=== PATIENT | male | born 1970 | race Caucasian/White ===

== ENCOUNTER 2021-01-22 14:34 | Emergency (ER) | payer OTHER, SELFPAY ==
--- NOTE | ~2021-01-22 | CT_ITS ---
EXAMINATION: CT lumbar spine wo con DATE: 01/22/2021 16:19 HELMINTHOLOGY TEACHER INDICATION: Low back pain after fall TECHNIQUE: Computed tomography (CT) of the lumbar spine was performed without intravenous contrast. Billy he dose-length product was 1379.23 mGy-cm. Automated exposure control and iterative reconstruction te hannahpabloque were employed. COMPARISON: Lumbar spine dated 01/22/2021 FINDINGS: There is mild disc narrowing at L4-5 and L5-S1. No acute fracture or traumatic malalignment . Normal lumbar lordosis. There is a left-sided pseudoarticulation and L5-S1. No significant paraspin al soft tissue abnormality. The following disc levels are specifically discussed: T11-T12: The disc does not extend beyond the endplate margin. There is no facet joint osteoarthritis. There is no neural foraminal stenosis. There is no central canal stenosis. T12-L1: The disc does not extend beyond the endplate margin. There is no facet joint osteoarthritis. There is no neural foraminal stenosis. There is no central canal stenosis. L1-L2: The disc does not extend beyond the endplate margin. There is no facet joint osteoarthritis. T here is no neural foraminal stenosis. There is no central canal stenosis. L2-L3: The disc does not extend beyond the endplate margin. There is no facet joint osteoarthritis. T here is no neural foraminal stenosis. There is no central canal stenosis. L3-L4: There is mild annular disc bulging without focal herniation. There is mild facet joint osteoar thritis. There is no neural foraminal stenosis. There is no central canal stenosis. L4-L5: There is mild-moderate annular disc bulging. There is no facet joint osteoarthritis. There is no neural foraminal stenosis. There is mild central canal stenosis. L5-S1: There is mild annular disc bulging There is mild facet joint osteoarthritis. There is no neura l foraminal stenosis. There is no central canal stenosis. IMPRESSION: 1. Mild lumbar spondylosis with mild central canal stenosis at L4-5. Reviewed, dictated and finalized at location A. INTHOLOGY TEACHER
--- NOTE | ~2021-01-22 | XR_ITS ---
XR lumbar spine 2-3V 01/22/2021 14:57 Indication: Status post fall. Low back pain. Procedure: 3 views lumbar spine Comparison: 01/13/2010 Findings: Mild disc narrowing at L4-5 and L5-S1. No fracture, subluxation or dislocation. Pedicles in tact. There is left-sided pseudoarticulation at L5-S1. No evidence for spondylolisthesis. Sacral fora men are symmetric. Impression: 1: No acute abnormality of the lumbar spine. Reviewed, dictated and finalized at location A. LITIES DIRECTOR Impression: 1: No acute abnormality of the lumbar spine.
--- NOTE | ~2021-01-22 | XR_ITS ---
XR elbow LT min 3V 01/22/2021 14:57 INDICATION: Left elbow pain PROCEDURE: 4 views left elbow COMPARISON: No prior studies for comparison. FINDINGS: Fracture, dislocation or subluxation is not identified. No significant joint effusion. Mild osteoarthritis. The soft tissues appear within normal limits. No foreign bodies are identified. IMPRESSION: 1: NO ACUTE BONE OR JOINT ABNORMALITY IDENTIFIED. Reviewed, dictated and finalized at location A. ITION ASSOCIATE
[2021-01-22 14:35] VITALS: BP 131/82; PULSE 88; RESP 17; TEMP 35.8; O2SAT 98
--- NOTE | 2021-01-22 15:46 | ED.FALL ---
HPI - Fall General Chief Complaint: Fall Stated Complaint: back pain, fall Time Seen by Provider: 01/22/21 15:07 Source: patient Mode of arrival: ambulatory Limitations: no limitations History of Present Illness HPI Narrative: This is a 50-year-old male that presents to the emergency department for low back pain after a ground-level fall. Reports he slipped getting out of the shower and fell backwards. Also reports hitting his left elbow. He does think he hit his head. He denies any loss of consciousness. Denies vision changes, vomiting, numbness, or weakness. Related Data Allergies Allergy/AdvReac Type Severity Reaction Status Date / Time No Known Allergies Allergy Unverified 07/16/16 15:32 Review of Systems Review of Systems: CONSTITUTIONAL: Denies fever EYES: Denies visual changes GASTROINTESTINAL: Denies vomiting MUSCULOSKELETAL: Reports back pain, joint pain, and myalgia. NEUROLOGIC: Denies numbness, or weakness. All systems reviewed & are unremarkable except as noted in HPI and below PMFSH Past Medical History Medical History (Updated 01/22/21 @ 16:39 by Erinn Salinas PA-C) No active medical problems Social History Social History (Updated 01/22/21 @ 15:49 by Erinn Salinas PA-C) Substance use: current Substance use type: marijuana Exam Narrative: GENERAL: Well-appearing, well-nourished, and in no acute distress. HEAD: Normocephalic, atraumatic. EYES: PERRLA and EOMI. ENT: Nares clear, no rhinorrhea or epistaxis. Mucous membranes moist. Oropharynx without tonsillar hypertrophy exudate or other lesions. Bilateral TMs pearly che non-bulging NECK: Supple. No adenopathy or masses. CHEST: Clear to auscultation. No respiratory distress. No wheezes rales or rhonchi HEART: Regular rate and rhythm. No murmur heard. Normal peripheral pulses. BACK: No midline thoracic spine tenderness. Tender to palpation of midline lumbar spine EXTREMITIES: Normal range of motion. No edema or obvious deformity. Strength equal in bilateral upper and lower extremities (5/5) SKIN: Warm, dry, no rash. NEURO: No focal deficits. Alert and oriented x3. Cranial nerves II through XII grossly intact. Normal gait PSYCH: Normal mood and affect Course Vital Signs Vital signs: Vital Signs Temperature 96.5 F L 01/22/21 14:35 Pulse Rate 88 01/22/21 14:35 Respiratory Rate 17 01/22/21 14:35 Blood Pressure 131/82 01/22/21 14:35 Pulse Oximetry 98 01/22/21 14:35 Temperature 96.5 F L 01/22/21 14:35 Pulse Rate 88 01/22/21 14:35 Respiratory Rate 17 01/22/21 14:35 Blood Pressure 131/82 01/22/21 14:35 Pulse Oximetry 98 01/22/21 14:35 MDM - Fall MDM Narrative Medical decision making narrative: Patient presents to the emergency department for low back pain and left elbow injury after a fall today. Patient does report hitting his head. Denies loss of consciousness. He is neurologically intact. Left elbow x-rays without acute osseous abnormalities. CT scan of the lumbar spine is also without acute osseous abnormalities. Patient was updated on case findings. He was instructed to rest, ice and take [id number] pain medication as needed. He is to follow-up with his primary care doctor. He was given warnings to return to the ER Imaging Data Radiologist's impression: ITS Impressions Elbow X-Ray 01/22/21 14:57 IMPRESSION: 1: NO ACUTE BONE OR JOINT ABNORMALITY IDENTIFIED. Lumbar Spine X-Ray 01/22/21 14:58 Impression: 1: No acute abnormality of the lumbar spine. Lumbar Spine CT 01/22/21 16:18 IMPRESSION: 1. Mild lumbar spondylosis with mild central canal stenosis at L4-5. Critical Care Time Critical Care Time Critical Care Time: No Discharge Plan Discharge Clinical Impression: Contusion of lower back Qualifiers: Encounter type: initial encounter Qualified Code(s): S30.0XXA - Contusion of lower back and pelvis, initial encounter Contusion of elbow
[2021-01-22 17:10] VITALS: BP 142/84; PULSE 84; RESP 17; O2SAT 98
== END 2021-01-22 17:12 | disposition home or self-care (01) ==
PROVIDERS: Emergency Provider Emergency Medicine
DX: S30.0XXA Contusion of lower back and pelvis, initial encounter (principal); S50.02XA Contusion of left elbow, initial encounter; M47.816 Spondylosis without myelopathy or radiculopathy, lumbar region; W01.0XXA Fall on same level from slipping, tripping and stumbling without subsequent striking against object, initial encounter
CPT/HCPCS: 72100; 72131; 73080; 99284; A4565

== ENCOUNTER 2021-01-25 14:56 | Outpatient (CLI) | payer OTHER, SELFPAY ==
--- NOTE | ~2021-01-25 | XR_ITS ---
EXAMINATION: XR chest 2V 01/25/2021 15:36 INDICATION: Joint pain. Tobacco use. PROCEDURE: 2 view chest COMPARISON: 07/16/2016 FINDINGS: The lungs are clear. The cardiomediastinal silhouette is within normal limits. There are no pleural effusions. There is no pneumothorax suspected. IMPRESSION: 1: NO ACUTE CARDIOPULMONARY DISEASE. Reviewed, dictated and finalized at location B. ANTY MANAGER
--- NOTE | ~2021-01-25 | XR_ITS ---
EXAMINATION: XR shoulder RT min 2V DATE: 01/25/2021 15:36 INDICATION: Right shoulder joint pain. TECHNIQUE: 4 views of right shoulder were obtained. COMPARISON: None. FINDINGS: Bone alignment is normal. No fracture. Glenohumeral joint is normal. There is severe acromi oclavicular joint osteoarthritis. IMPRESSION: 1. Severe acromioclavicular joint osteoarthritis. Reviewed, dictated and finalized at location A. ET RESEARCH COORDINATOR
--- NOTE | ~2021-01-25 | XR_ITS ---
XR shoulder LT min 2V 01/25/2021 15:37 Indication: Left shoulder pain Procedure: 4 views left shoulder Comparison: No prior studies for comparison. Findings: No fracture, subluxation or dislocation. There is anatomic alignment. No significant soft t issue abnormality. No foreign bodies. Impression: 1: No significant bone or joint abnormality. Reviewed, dictated and finalized at location B. FF CLERK Impression: 1: No significant bone or joint abnormality.
== END 2021-01-25 14:57 | disposition home or self-care (01) ==
LOC: ANHIMG 15:00
PROVIDERS: PCP Emergency Medicine; Visit Provider Emergency Medicine
DX: M19.011 Primary osteoarthritis, right shoulder (principal)
CPT/HCPCS: 71046; 73030

== ENCOUNTER 2021-02-05 23:25 | Emergency (ER) | payer OTHER, SELFPAY ==
--- NOTE | ~2021-02-05 | CT_ITS ---
EXAMINATION: CT abdomen pelvis w con DATE: 02/06/2021 01:46 INDICATION: Gluteal abscess and pain. TECHNIQUE: Computed tomography (CT) of the abdomen and pelvis was performed with 100 mL Omnipaque 350 intravenous contrast. Automated exposure control and iterative reconstruction technique were employe d. The dose-length product was 1531.49 mGy-cm. COMPARISON: CT abdomen and pelvis 01/31/2010 FINDINGS: There is a 2 mm nodule in right lung lower lobe, likely benign. No pleural effusion. The he art size is normal. No pericardial effusion. There is diffuse hepatic steatosis. There are gallstones in the gallbladder, which is normal in size. The spleen, pancreas, and right adrenal gland are merly l. Again seen is a 12 mm mass in left adrenal gland, likely an adenoma. There are cysts in the kidney s measuring up to 14 mm on the right. There are no dilated loops of bowel. The appendix is not visual ized. There is a 2.1 x 1.1 cm subcutaneous abscess in the left side of the intergluteal cleft. There are no pathologically enlarged lymph nodes. There is no free intraperitoneal fluid. There is mild tho racolumbar spondylosis. IMPRESSION: 1. 2.1 x 1.1 cm subcutaneous abscess in the left side of the intergluteal cleft. Reviewed, dictated and finalized at location A. H MOLDER IMPRESSION: 1. 2.1 x 1.1 cm subcutaneous abscess in the left side of the intergluteal cleft .
[2021-02-05 23:29] VITALS: BP 176/86; PULSE 115; RESP 20; TEMP 36.3; O2SAT 97
[2021-02-06] VITALS (14 sets, daily range): BP systolic 101–118; BP diastolic 62–87; PULSE 86–103; RESP 17–26; O2SAT 95
[2021-02-06] MEDS: SODIUM CHLORIDE 0.9% IV 1,000 ML 999 ML IV CONT (00:48)
[2021-02-06 00:54] LABS: Basophils Absolute Auto 0.1 K/mm3 (0.0-0.1); Basophils Percent Auto 0.5 % (0.2-1.2); Eosinophils Absolute Auto 0.1 K/mm3 (0-0.3); Hematocrit 47.9 % (42.0-52.0); Hemoglobin 17.1 g/dL (14.0-18.0); Immature Granulocyte Absolute 0.07 K/mm3 (0.00-0.031); Immature Granulocyte Percent A 0.6 % (0-0.5); Lymphocytes Absolute Auto 1.73 K/mm3 (0.9-3.2); Lymphocytes Percent Auto 14.6 % (18.3-44.2); Mean Corpuscular HGB Conc 35.7 g/dl (32-36); Mean Corpuscular Hemoglobin 32.7 pg (26-34); Mean Corpuscular Volume 91.6 fl (80-100); Mean Platelet Volume 11.2 fl (7.4-10.4); Monocytes Absolute Auto 1.1 K/mm3 (0.1-0.6); Monocytes Percent Auto 9.6 % (2.6-8.5); Neutrophils Absolute Auto 8.7 K/mm3 (1.3-6.7); Neutrophils Percent Auto 73.7 % (45.5-73.1); Platelet Count Result 194 k/mm3 (150-375); Red Blood Count 5.23 M/mm3 (4.6-6.20); Red Cell Distribution Width 12.8 % (11.5-14.5); White Blood Count 11.8 K/mm3 (4.5-10.0)
--- NOTE | 2021-02-06 00:54 | PC.NURSE ---
Patient declines dilaudid at this time. Patient states pain is only 2-3. States he will let this nurse know if pain gets worse.
[2021-02-06 01:06] LABS: Alanine Aminotransferase 40 U/L (4-50); Albumin Level 4.4 g/dL (3.5-5.1); Alkaline Phosphatase 120 U/L (38-126); Anion Gap 8 mmol/L (8-16); Aspartate Amino Transferase 33 U/L (17-59); Bilirubin,Total 0.7 mg/dL (0.2-1.3); Blood Urea Nitrogen 15 mg/dL (9-20); Calcium 9.1 mg/dL (8.4-10.2); Carbon Dioxide 24 mmol/L (22-30); Chloride 98 mmol/L (98-107); Estimated CRCL calculation 163 ml/min; Estimated Glomerular Filt Rate > 60; Glucose 291 mg/dL (65-110); Potassium 3.6 mmol/L (3.4-5.0); Sodium 130 mmol/L (137-145)
--- NOTE | 2021-02-06 01:18 | ED.GENADULT ---
HPI - General Adult General Chief complaint: Skin/Abscess/Foreign Body Stated complaint: boil on buttocks Time Seen by Provider: 02/06/21 00:16 History of Present Illness HPI narrative: Patient is a 50-year-old gentleman who presents the emergency department with chief complaint of abscess in the left gluteal region. Patient reports he is a diabetic and is supposed to start oral medications in the next several days. The patient states that he has noticed there is swelling and tenderness in the left gluteal region. The patient denies fever denies chills denies purulent drainage. Related Data Allergies Allergy/AdvReac Type Severity Reaction Status Date / Time No Known Allergies Allergy Unverified 07/16/16 15:32 Review of Systems Review of Systems: A 10 system review of systems was completed on the patient and is negative except for what is stated in the HPI. Nursing and ancillary documentation was reviewed. PENDING SALE TO [facility] Past Medical History Medical History No active medical problems Social History Social History Substance use: current Substance use type: marijuana Exam Narrative: GENERAL: Well-appearing, well-nourished, and in no acute distress. HEAD: Normocephalic, atraumatic. EYES: PERRLA and EOMI. ENT: Nares clear, no rhinorrhea or epistaxis. Mucous membranes moist. NECK: Supple. CHEST: Clear to auscultation. No respiratory distress. HEART: Regular rate and rhythm. No murmur heard. Normal peripheral pulses. ABDOMEN: Soft, nontender, nondistended, normal active bowel sounds. EXTREMITIES: Normal range of motion. No edema. : There is tenderness to palpation in the left gluteal fold SKIN: Warm, dry, no rash. NEURO: No focal deficits. Alert and oriented x3. PSYCH: Normal mood and affect. Course Vital Signs Vital signs: Vital Signs Temperature 36.3 C L 02/05/21 23:29 Pulse Rate 115 H 02/05/21 23:29 Respiratory Rate 20 02/05/21 23:29 Blood Pressure 176/86 H 02/05/21 23:29 Pulse Oximetry 97 02/05/21 23:29 Temperature 36.3 C L 02/05/21 23:29 Pulse Rate 93 12/13/21 01:49 Respiratory Rate 18 02/06/21 01:30 Blood Pressure 106/64 02/06/21 02:00 Pulse Oximetry 97 02/05/21 23:29 Procedures Abscess I/D thomas-rectal: Date of Incision: 02/06/21 Time of Incision: 02:37 Side (if applicable): right Local Anesthetic: lidocaine 1% Amount of anesthesia used (mL): 5 Technique: incised with #11 blade Amount of fluid expressed (mL): 5 Packing used?: iodoform I&D Results: Pus Medical Decision Making Vital Signs Vital Signs: Vital Signs Temperature 36.3 C L 02/05/21 23:29 Pulse Rate 115 H 02/05/21 23:29 Respiratory Rate 20 02/05/21 23:29 Blood Pressure 176/86 H 02/05/21 23:29 Pulse Oximetry 97 02/05/21 23:29 Temperature 36.3 C L 02/05/21 23:29 Pulse Rate 93 02/06/21 01:49 Respiratory Rate 18 02/06/21 01:30 Blood Pressure 106/64 02/06/21 02:00 Pulse Oximetry 97 02/05/21 23:29 Lab Data Result diagrams: 02/06/21 00:47 02/06/21 00:47 Labs: Lab Results 02/06/21 02/06/21 02/06/21 Range/Units 00:47 00:47 00:47 WBC 11.8 H (4.5-10.0) K/mm3 RBC 5.23 (4.6-6.20) M/mm3 Hgb 17.1 (14.0-18.0) g/dL Hct 47.9 (42.0-52.0) % MCV 91.6 (80-100) fl MCH 32.7 (26-34) pg MCHC 35.7 (32-36) g/dl RDW 12.8 (11.5-14.5) % Plt Count 194 (150-375) k/mm3 MPV 11.2 H (7.4-10.4) fl Immature Gran % (Auto) 0.6 H (0-0.5) % Neut % (Auto) 73.7 H (45.5-73.1) % Lymph % (Auto) 14.6 L (18.3-44.2) % [place] % (Auto) 9.6 H (2.6-8.5) % Eos % (Auto) 1.0 (0-4.4) % Baso % (Auto) 0.5 (0.2-1.2) % Lymph # (Auto) 1.73 (0.9-3.2) K/mm3 [place] # (Auto) 1.1 H (0.1-0.6) K/mm3 Eos # (Auto) 0.1 (0-0.3)
--- NOTE | 2021-02-06 01:32 | PC.NURSE ---
Patient taken to CT via stretcher.
--- NOTE | 2021-02-06 02:11 | PC.NURSE ---
[facility] - DILAUDID 1MG PRIOR TO IND
[2021-02-06] MEDS: HYDROmorphone HCL INJ (*CRX) 1 MG/ML SYR IV PUSH (02:13)
[2021-02-06 02:26] LABS: Add Urine Microscopic? YES; Appearance Urine Clear (Clear); Bilirubin Urine Negative (Negative); Blood Urine Negative (Negative); Color Urine Yellow (Yellow); Glucose Urine UA 3+ mg/dL (Negative); Ketones Urine 1+ mg/dL (Negative); Leukocyte Esterase Ur Negative LEU/UL (Negative); Mucus Urine Rare /lpf; Nitrate Urine Negative (Negative); Protein Urine Negative (Negative); RBC Urine 0-2 /hpf (0-2); Urobilinogen Urine Negative mg/dL (<2.0); WBC Urine 0-3 /hpf
[2021-02-06 02:31] LABS: Specific Grav Ur 1.048 (1.001-1.035)
[2021-02-06] MEDS: CEPHALEXIN 500 MG CAPSULE PO (02:48)
[2021-02-06] MEDS: HYDROcodone/acetaminophen (*CRX) 5-325 MG TABLET 1 TAB PO (02:48)
== END 2021-02-06 02:57 | disposition home or self-care (01) ==
PROVIDERS: Emergency Provider Emergency Medicine; PCP Emergency Medicine
DX: L02.31 Cutaneous abscess of buttock (principal)
CPT/HCPCS: 10061; 16020; 36415; 46040; 74177; 80053; 81001; 83605; 85025; 96361; 96374; 99284; A9270; J1170; J7030; Q9967

== ENCOUNTER → 2021-02-08 02:53 | Outpatient (CLI) | payer OTHER, SELFPAY ==
[2021-02-08 18:29] LABS: SARS-CoV-2 RNA PCR Negative
== END ==
PROVIDERS: PCP Emergency Medicine; Visit Provider Emergency Medicine
DX: Z20.822 Contact with and (suspected) exposure to COVID-19 (principal)
CPT/HCPCS: C9803; U0003; U0005

== ENCOUNTER 2021-05-19 12:42 | Outpatient (CLI) | payer OTHER, SELFPAY ==
--- NOTE | ~2021-05-19 | US_ITS ---
EXAMINATION: US thyroid EXAM DATE: 05/19/2021 13:15 INDICATION: Nontoxic goiter. TECHNIQUE: Multiple grayscale and Doppler images of the thyroid were obtained (by a technologist who performed the scan) and subsequently reviewed. Individual nodules and recommendations may be reporte d in accordance with TI-RADS system as designated by the 2017 ACR White Paper TI-RADS committee. The re is no prior study for comparison. FINDINGS: Right thyroid lobe measures 4.3 x 1.5 x 1.5 cm, the left measuring 4.8 x 1.6 x 1.9 cm. There is diffu sely heterogeneous thyroid echogenicity. The measurements are mildly enlarged. No definite focal nodu le identified within this heterogeneous parenchyma. IMPRESSION: 1. Mild thyromegaly. Reviewed, dictated and finalized at location G. IMPRESSION: 1. Mild thyromegaly.
== END 2021-05-19 12:43 | disposition home or self-care (01) ==
LOC: ANHIMG 12:48
PROVIDERS: PCP Emergency Medicine; Visit Provider Internal Medicine Endocrinology, Diabetes & Metabolism
DX: E04.9 Nontoxic goiter, unspecified (principal)
CPT/HCPCS: 76536

== ENCOUNTER 2021-07-11 09:23 | Outpatient (CLI) | payer OTHER, SELFPAY ==
--- NOTE | ~2021-07-11 | US_ITS ---
EXAMINATION: US soft tissue abdomen DATE: 07/11/2021 10:02 INDICATION: Diastases recti TECHNIQUE: Multiple grayscale and Doppler ultrasound images of the anterior abdominal wall were obtai janice. COMPARISON: CT dated 02/06/2021 FINDINGS: Again seen is diastases recti with at least 7 cm separation of the medial margin of the left and righ t rectus abdominis muscles. No ventral hernia. No abnormal masses or fluid collections identified. IMPRESSION: 1. Diastases recti without hernia. Reviewed, dictated and finalized at location A.
== END 2021-07-11 09:24 | disposition home or self-care (01) ==
PROVIDERS: PCP Physician Assistant; Visit Provider Physician Assistant
DX: M62.08 Separation of muscle (nontraumatic), other site (principal)
CPT/HCPCS: 76705

== ENCOUNTER 2021-07-31 17:23 | Outpatient (CLI) | payer OTHER, SELFPAY ==
--- NOTE | ~2021-07-31 | XR_ITS ---
XR sternum min 2V 07/31/2021 17:55 Indication: Swelling at the base of the sternum for one month. No pain. Procedure: 3 views of the sternum Comparison: 01/25/2021 Findings: No fracture, subluxation or dislocation. No focal soft tissue abnormality. No foreign elder s. Impression: 1: No acute abnormality of the sternum identified. Reviewed, dictated and finalized at location B. Impression: 1: No acute abnormality of the sternum identified.
== END 2021-07-31 17:24 | disposition home or self-care (01) ==
PROVIDERS: PCP Physician Assistant; Visit Provider Physician Assistant
DX: R07.89 Other chest pain (principal)
CPT/HCPCS: 71120

== ENCOUNTER 2021-08-24 12:46 | Outpatient (CLI) | payer OTHER, SELFPAY ==
--- NOTE | ~2021-08-24 | MR_ITS ---
EXAMINATION: MR shoulder RT wo con DATE: 08/24/2021 13:32 INDICATION: Partial thickness right rotator cuff tear is chronic shoulder pain and popping TECHNIQUE: Magnetic resonance imaging (MRI) of the right shoulder was performed without intravenous c ontrast. Sequences included axial PD-weighted FS FSE, coronal oblique PD-weighted FS FSE, coronal obl ique T2-weighted FS FSE, sagittal PD-weighted FS FSE, and sagittal T1-weighted SE. COMPARISON: None. FINDINGS: Coracoacromial arch: The acromion undersurface is curved in morphology (type II). The coracoacromial ligament is normal. M oderate acromioclavicular osteoarthritis with moderate-sized inferiorly directed osteophytes in the l ateral head of the clavicle which is by a thin intervening fat plane from the underlying lima praspinatus muscle belly upon which it does exert some mild mass effect. Rotator cuff: Mild tendinopathy at the conjoined portion of the supraspinatus and infraspinatus tendons without tea r. The teres minor tendon is normal. Mild subscapularis tendinopathy without tear. Normal rotator cuf f muscle bulk and signal. Biceps tendon, glenoid labrum and glenohumeral cartilage: Long head of the biceps tendon is normal. The posterior labrum appears small, partially replaced at i ts base by small marginal osteophytes along the 8:00-10:00 position of the rim of the glenoid. No lizzie dent labral tear. Mild diffuse thinning of the glenohumeral cartilage but with smooth chondral surfac e. Fluid: Physiologic amount of fluid in the glenohumeral joint and biceps tendon sheath. No loose osteochondr al bodies. No abnormal fluid signal in the subacromial/subdeltoid bursa to suggest bursitis. Bones: Normal marrow signal with no edema, fracture or abnormal marrow replacing process. IMPRESSION: 1. Moderate right acromioclavicular osteoarthritis with moderate-sized inferiorly directed osteophyte s. 2. Mild tendinopathy without tear of the conjoined supraspinatus and infraspinatus tendons. 3. Mild glenohumeral osteoarthritis. Reviewed, dictated and finalized at location A. IMPRESSION: 1. Moderate right acromioclavicular osteoarthritis with moderate-sized inferior ly directed osteophytes. 2. Mild tendinopathy without tear of the conjoined supraspinatus and infraspina tus tendons. 3. Mild glenohumeral osteoarthritis.
== END 2021-08-24 12:47 | disposition home or self-care (01) ==
PROVIDERS: PCP Physician Assistant; Visit Provider Orthopaedic Surgery
DX: M75.101 Unspecified rotator cuff tear or rupture of right shoulder, not specified as traumatic (principal); M19.011 Primary osteoarthritis, right shoulder
CPT/HCPCS: 73221

== ENCOUNTER 2022-10-02 16:25 | Emergency (ER) | payer OTHER, SELFPAY ==
--- NOTE | ~2022-10-02 | XR_ITS ---
EXAM: XR knee RT min 4V DATE: 10/02/2022 16:49 HISTORY: pain MEDIALLY AFTER TWISTING KNEE YESTERDAY . COMPARISON: None available. FINDINGS: Normal mineralization. No fracture or dislocation. No lytic or blastic lesion. Mild tricom partmental right knee osteoarthritis. No erosion or periosteal change. Soft tissues within normal yañez its. IMPRESSION: No acute osseous finding in the right knee. Reviewed, dictated and finalized at location K.
[2022-10-02 16:33] VITALS: BP 116/63; PULSE 69; RESP 16; TEMP 36.7; O2SAT 97
--- NOTE | 2022-10-02 18:26 | ED.LOWEXIN ---
HPI - Extremity Injury (Lower) General Chief Complaint: Extremity Injury, Lower <Aimee Holland PA-C - Last Filed: 10/03/22 02:38> Stated Complaint: right knee sprain <FARHAN Tahyer Last Filed: 10/03/22 02:38> Time Seen by Provider: 10/02/22 17:28 <Aimee Holland PA-C - Last Filed: 10/03/22 02:38> History of Present Illness HPI Narrative: 52-year-old male reports for evaluation for right knee pain after he twisted it yesterday while walking his dog. Patient states he was walking his dog, and stubbed his foot on a pothole, causing him to twist his right knee, states he felt a pop. States he had no pain at that time and was able to ambulate without difficulty yesterday. States today he woke up and his head sharp pains in his right medial joint line, worse with ambulation. He is able to ambulate. He denies paresthesias to his lower extremity or other injury. He already has an orthopedic surgeon he follows with. <FARHAN Thayer Last Filed: 10/03/22 02:38> Related Data Allergies/Adverse Reactions: Allergies Allergy/AdvReac Type Severity Reaction Status Date / Time No Known Allergies Allergy Unverified 07/16/16 15:32 <Aimee Holland PA-C - Last Filed: 10/03/22 02:38> Review of Systems Review of Systems: CONSTITUTIONAL: Denies fever, chills EYES: Denies visual changes, redness, or discharge. ENT: Denies rhinorrhea, congestion, sore throat, or otalgia. CARDIOVASCULAR: Denies chest pain, palpitations, or edema. RESPIRATORY: Denies cough or dyspnea. GASTROINTESTINAL: Denies abdominal pain, nausea, vomiting, or diarrhea. GENITOURINARY: Denies dysuria or hematuria. SKIN: Denies rash or itching. MUSCULOSKELETAL: See HPI NEUROLOGIC: Denies headache, numbness, dizziness, or weakness. PSYCHIATRIC: Denies anxiety or depression. <FARHAN Thayer Last Filed: 10/03/22 02:38> [facility] Past Medical History Medical History: Medical History No active medical problems <Aimee oHlland PA-C - Last Filed: 10/03/22 02:38> Social History Social History: Social History Substance use: current Substance use type: marijuana <Aimee Holland PA-C - Last Filed: 10/03/22 02:38> Exam Narrative: GENERAL: Well-appearing, in no acute distress. Patient resting comfortably exam chair. He is pleasant and conversational HEAD: Normocephalic NECK: Supple. CHEST: No respiratory distress. Clear to auscultation, no adventitious breath sounds. HEART: Regular rate and rhythm. No murmur heard. Normal peripheral pulses. EXTREMITIES: Right knee with tenderness to the medial joint line. No effusions, warmth or erythema. No tenderness to remainder of knee. Negative anterior and posterior drawer. No laxity with varus or valgus stress. Full range of motion of knee. Sensation intact throughout. DP pulse 2+. Cap refill less than 2. SKIN: Warm, dry, no rash. NEURO: No focal deficits. Alert and oriented x3. PSYCH: Normal mood and affect. <Aimee Holland PA-C - Last Filed: 10/03/22 02:38> Course MANAGER IT TRAINING/PA Physician Supervision I did perform the medical decision making for this encounter. <Ericka Elias MD - Last Filed: 10/03/22 19:43> Vital Signs Vital signs: Vital Signs Temperature 98.1 F 10/02/22 16:33 Pulse Rate 69 10/02/22 16:33 Respiratory Rate 16 10/02/22 16:33 Blood Pressure 116/63 10/02/22 16:33 Pulse Oximetry 97 10/02/22 16:33 Oxygen Delivery Room Air 10/02/22 16:33 Temperature 98.1 F 10/02/22 16:33 Pulse Rate 72 10/02/22 18:41 Respiratory Rate 18 10/02/22 18:41 Blood Pressure 120/78 10/02/22 18:41 Pulse Oximetry 99 10/02/22 18:41 Oxygen Delivery Room Air 10/02/22 16:33 <Aimee Holland PA-C - Last Filed: 10/03/22 02:38> Vital Signs Temperature 98.1 F 08/0
[2022-10-02 18:41] VITALS: BP 120/78; PULSE 72; RESP 18; O2SAT 99
== END 2022-10-02 18:42 | disposition home or self-care (01) ==
PROVIDERS: Emergency Provider Physician Assistant
DX: S86.911A Strain of unspecified muscle(s) and tendon(s) at lower leg level, right leg, initial encounter (principal); X50.0XXA Overexertion from strenuous movement or load, initial encounter
CPT/HCPCS: 73564; 99283

== ENCOUNTER 2022-10-15 12:31 | Outpatient (CLI) | payer OTHER, SELFPAY ==
[2022-10-15 12:43] LABS: Hematocrit 38.9 % (42.0-52.0); Hemoglobin 13.5 g/dL (14.0-18.0); Mean Corpuscular HGB Conc 34.7 g/dl (32-36); Mean Corpuscular Hemoglobin 32.3 pg (26-34); Mean Corpuscular Volume 93.1 fl (80-100); Mean Platelet Volume 9.8 fl (7.4-10.4); Platelet Count Result 211 k/mm3 (150-375); Red Blood Count 4.18 M/mm3 (4.6-6.20); Red Cell Distribution Width 12.7 % (11.5-14.5); White Blood Count 7.5 K/mm3 (4.5-10.0)
== END 2022-10-15 12:32 | disposition home or self-care (01) ==
LOC: ANHLAB 12:34
PROVIDERS: Visit Provider Internal Medicine Hematology & Oncology
DX: D75.1 Secondary polycythemia (principal)
CPT/HCPCS: 36415; 85027

== ENCOUNTER 2023-01-15 10:40 | Outpatient (CLI) | payer OTHER, SELFPAY ==
[2023-01-15 11:04] LABS: Mean Corpuscular HGB Conc 35.6 g/dl (32-36); Mean Corpuscular Hemoglobin 32.7 pg (26-34); Mean Corpuscular Volume 91.8 fl (80-100); Mean Platelet Volume 10.2 fl (7.4-10.4); Platelet Count Result 252 k/mm3 (150-375); Red Cell Distribution Width 12.8 % (11.5-14.5); White Blood Count 9.8 K/mm3 (4.5-10.0)
[2023-01-15 17:21] LABS: Iron 81 ug/dL (49-181)
[2023-01-15 17:34] LABS: Percent Iron Saturation 24 % (20-50)
== END 2023-01-15 10:41 | disposition home or self-care (01) ==
PROVIDERS: Visit Provider Internal Medicine Hematology & Oncology
DX: D50.9 Iron deficiency anemia, unspecified (principal)
CPT/HCPCS: 36415; 82728; 83540; 83550; 85027

== ENCOUNTER 2023-04-09 10:08 | Emergency (ER) | payer OTHER, SELFPAY ==
--- NOTE | ~2023-04-09 | CT_ITS ---
EXAMINATION: CT lumbar spine wo con DATE: 04/09/2023 13:47 INDICATION: Back pain. TECHNIQUE: Computed tomography (CT) of the lumbar spine was performed without intravenous contrast. A utomated exposure control and iterative reconstruction technique were employed. The dose-length produ ct was 1195.75 mGy-cm. COMPARISON: CT lumbar spine 01/22/2021 FINDINGS: Bone alignment is normal. L5 is a transitional segment. There are Schmorl's nodes at multip le levels. There are bilateral L4 pars defects. There is a fracture of L4 spinous process. There is m ildly decreased disc height at L4-L5. The following disc levels are specifically discussed: L1-L2: The disc does not extend beyond the endplate margin. There is mild bilateral facet joint osteo arthritis. There is no neural foraminal stenosis. There is no central canal stenosis. L2-L3: The disc does not extend beyond the endplate margin. There is mild bilateral facet joint osteo arthritis. There is no neural foraminal stenosis. There is no central canal stenosis. L3-L4: The disc is bulging. There is mild bilateral facet joint osteoarthritis. There is mild bilater al neural foraminal stenosis. There is mild central canal stenosis. L4-L5: The disc is bulging. There is mild bilateral facet joint osteoarthritis. There is mild left ne ural foraminal stenosis. There is mild central canal stenosis. There are changes of posterior decompr ession including resection of the medial aspect of the right facet joint. L5-S1: The disc does not extend beyond the endplate margin. There is ankylosis of the facet joints wi th mild hypertrophy. There is mild left neural foraminal stenosis. There is no central canal stenosis . IMPRESSION: 1. Acute/subacute bilateral L4 pars defects and L4 spinous process fracture. 2. Mild lumbar spondylosis. Reviewed, dictated and finalized at location A. [facility]
[2023-04-09 11:22] VITALS: BP 123/81; PULSE 66; RESP 18; O2SAT 96
--- NOTE | 2023-04-09 13:32 | ED.BACK ---
HPI - Back Pain/Injury General Chief Complaint: Back Pain/Injury Stated Complaint: back pain Time Seen by Provider: 04/09/23 12:45 History of Present Illness HPI Narrative: Patient is a 52-year-old male who presents to the emergency department this afternoon complaining of lower back pain. Patient admits that he did have back surgery performed at [facility] along his lumbar spine in December of last year. Since then patient states that he has been doing well, however, throughout the last week has been noticing worsening lower back pain. Patient denies any recent falls or trauma but admits that a while ago while he was at the grocery store someone accidentally elbowed him in the back around the area where he had his lumbar surgery and he was concerned if that may have worsened anything in his back. He is currently denying any fevers or chills, denies any history of cancer or history of IV drug use and is currently denying any additional symptoms including chest pain, shortness of breath, nausea, vomiting, abdominal pain, dysuria, hematuria, constipation, diarrhea, melena, hematochezia, fevers or chills. Patient also denies any headaches, dizziness, lightheadedness, blurry visions, focal weakness, numbness and or tingling. There are no other modifying, alleviating, or precipitating factors at this time. Related Data Allergies Allergy/AdvReac Type Severity Reaction Status Date / Time No Known Allergies Allergy Verified 04/09/23 11:21 Review of Systems Review of Systems: All systems are reviewed and are negative unless stated otherwise in the HPI. [facility] Past Medical History Medical History No active medical problems Social History Social History Substance use: current Substance use type: marijuana Comments Denies any significant past medical history, patient had lumbar back surgery December of 2022, denies any significant family history, denies tobacco use, admits to daily marijuana use, denies any alcohol abuse or any additional illicit drug use. Exam Narrative: General: Alert, awake, afebrile, in no acute distress. HEENT: PERRL, no rhinorrhea, no post nasal drip, oropharynx clear. Neck: Trachea midline, no JVD, no lymphadenopathy. Cardiovascular: Regular rate and rhythm, no murmurs, rubs or gallops, no peripheral edema. Respiratory: Clear to auscultation bilaterally, no tachypnea, no wheezing, no rhonchi, no rubs, no respiratory distress. Abdomen: Soft, nontender, nondistended, no rebound, no guarding, no peritoneal signs. Musculoskeletal: No joint swelling or deformity, normal muscle tone. Back: Old well-healed scar over the lumbar spine, mild tenderness to palpation over the midline L-spine and left paraspinal lumbar region, no step-offs or deformities, no midline tenderness to palpation over the cervical and thoracic spine. Skin: No rashes or petechia, no signs of infection. Psychiatric: Alert and oriented, normal behavior and judgment for situation. Neurological: Alert and oriented to person, place, and time. Follows all commands. No focal deficits, speech is clear and fluent. Course Vital Signs Vital signs: Vital Signs Pulse Rate 66 04/09/23 11:22 Respiratory Rate 18 04/09/23 11:22 Blood Pressure 123/81 04/09/23 11:22 Pulse Oximetry 96 04/09/23 11:22 Pulse Rate 66 04/09/23 11:22 Respiratory Rate 18 04/09/23 11:22 Blood Pressure 123/81 04/09/23 11:22 Pulse Oximetry 96 04/09/23 11:22 MDM - Back Pain/Injury MDM Narrative Medical decision making narrative: The patient was evaluated by myself in the emergency department. History is obtained from patient who is an independent historian and physical exam was performed. External medical records were reviewed at this time. Patient was administered an oral [place] 5-325 mg for back pain. Imaging studies obtained includ
[2023-04-09] MEDS: HYDROcodone/acetaminophen (*CRX) 5-325 MG TABLET 1 TAB PO (13:46)
[2023-04-09 14:35] VITALS: BP 126/99; PULSE 66; RESP 18; TEMP 37; O2SAT 97
== END 2023-04-09 14:39 | disposition home or self-care (01) ==
PROVIDERS: Emergency Provider Emergency Medicine
DX: S32.049A Unspecified fracture of fourth lumbar vertebra, initial encounter for closed fracture (principal); M47.816 Spondylosis without myelopathy or radiculopathy, lumbar region; X58.XXXA Exposure to other specified factors, initial encounter
CPT/HCPCS: 72131; 99284; A9270

== ENCOUNTER 2023-04-25 09:34 | Outpatient (CLI) | payer OTHER, SELFPAY ==
[2023-04-25 09:54] LABS: Basophils Absolute Auto 0.1 K/mm3 (0.0-0.1); Basophils Percent Auto 0.6 % (0.2-1.2); Eosinophils Absolute Auto 0.3 K/mm3 (0-0.3); Eosinophils Percent Auto 3.3 % (0-4.4); Hematocrit 47.3 % (42.0-52.0); Hemoglobin 16.4 g/dL (14.0-18.0); Immature Granulocyte Absolute 0.03 K/mm3 (0.00-0.031); Immature Granulocyte Percent A 0.3 % (0-0.5); Lymphocytes Absolute Auto 1.52 K/mm3 (0.9-3.2); Lymphocytes Percent Auto 17.1 % (18.3-44.2); Mean Corpuscular HGB Conc 34.7 g/dl (32-36); Mean Corpuscular Hemoglobin 31.7 pg (26-34); Mean Corpuscular Volume 91.3 fl (80-100); Mean Platelet Volume 10.2 fl (7.4-10.4); Monocytes Absolute Auto 0.7 K/mm3 (0.1-0.6); Monocytes Percent Auto 7.9 % (2.6-8.5); Neutrophils Absolute Auto 6.3 K/mm3 (1.3-6.7); Neutrophils Percent Auto 70.8 % (45.5-73.1); Platelet Count Result 231 k/mm3 (150-375); Red Blood Count 5.18 M/mm3 (4.6-6.20); Red Cell Distribution Width 12.6 % (11.5-14.5); White Blood Count 8.9 K/mm3 (4.5-10.0)
[2023-04-25 11:56] LABS: Iron 52 ug/dL (49-181)
[2023-04-25 12:06] LABS: Percent Iron Saturation 14 % (20-50)
== END 2023-04-25 09:35 | disposition home or self-care (01) ==
LOC: ANHLAB 09:36
PROVIDERS: Visit Provider Internal Medicine Hematology & Oncology
DX: D50.9 Iron deficiency anemia, unspecified (principal)
CPT/HCPCS: 36415; 82728; 83540; 83550; 85025

== ENCOUNTER 2023-08-22 08:42 | Outpatient (CLI) | payer OTHER, SELFPAY ==
[2023-08-22 08:58] LABS: Basophils Absolute Auto 0.1 K/mm3 (0.0-0.1); Basophils Percent Auto 0.9 % (0.2-1.2); Eosinophils Absolute Auto 0.3 K/mm3 (0-0.3); Eosinophils Percent Auto 3.2 % (0-4.4); Hematocrit 47.3 % (42.0-52.0); Hemoglobin 16.9 g/dL (14.0-18.0); Immature Granulocyte Absolute 0.03 K/mm3 (0.00-0.031); Immature Granulocyte Percent A 0.4 % (0-0.5); Lymphocytes Absolute Auto 1.55 K/mm3 (0.9-3.2); Lymphocytes Percent Auto 19.4 % (18.3-44.2); Mean Corpuscular HGB Conc 35.7 g/dl (32-36); Mean Corpuscular Hemoglobin 31.8 pg (26-34); Mean Corpuscular Volume 89.1 fl (80-100); Mean Platelet Volume 10.5 fl (7.4-10.4); Monocytes Absolute Auto 0.7 K/mm3 (0.1-0.6); Neutrophils Absolute Auto 5.4 K/mm3 (1.3-6.7); Neutrophils Percent Auto 67.1 % (45.5-73.1); Platelet Count Result 222 k/mm3 (150-375); Red Blood Count 5.31 M/mm3 (4.6-6.20); Red Cell Distribution Width 14.1 % (11.5-14.5)
[2023-08-22 11:21] LABS: Iron 75 ug/dL (49-181)
[2023-08-22 11:26] LABS: Alanine Aminotransferase 27 U/L (6-50); Albumin Level 4.6 g/dL (3.5-5.1); Alkaline Phosphatase 83 U/L (38-126); Anion Gap 11 mmol/L (4-12); Aspartate Amino Transferase 24 U/L (17-59); Bilirubin,Total 0.5 mg/dL (0.2-1.3); Blood Urea Nitrogen 15 mg/dL (9-20); Calcium 9.2 mg/dL (8.4-10.2); Carbon Dioxide 21 mmol/L (22-30); Chloride 107 mmol/L (98-107); Estimated Glomerular Filt Rate > 60; Glucose 110 mg/dL (65-110); Potassium 3.9 mmol/L (3.4-5.0); Sodium 139 mmol/L (137-145)
[2023-08-22 11:31] LABS: Percent Iron Saturation 21 % (20-50)
== END 2023-08-22 08:43 | disposition home or self-care (01) ==
LOC: ANHLAB 08:43
PROVIDERS: Nurse Practitioner Family; Visit Provider Internal Medicine Hematology & Oncology
DX: E83.110 Hereditary hemochromatosis (principal)
CPT/HCPCS: 36415; 80053; 82728; 83540; 83550; 85025

== ENCOUNTER 2023-09-05 08:21 | Outpatient (CLI) | payer OTHER, SELFPAY ==
[2023-09-05 08:41] LABS: Basophils Percent Auto 0.6 % (0.2-1.2); Eosinophils Absolute Auto 0.3 K/mm3 (0-0.3); Eosinophils Percent Auto 3.9 % (0-4.4); Hemoglobin 16.3 g/dL (14.0-18.0); Immature Granulocyte Absolute 0.02 K/mm3 (0.00-0.031); Immature Granulocyte Percent A 0.3 % (0-0.5); Lymphocytes Absolute Auto 1.53 K/mm3 (0.9-3.2); Mean Corpuscular HGB Conc 35.4 g/dl (32-36); Mean Corpuscular Hemoglobin 32.1 pg (26-34); Mean Corpuscular Volume 90.6 fl (80-100); Mean Platelet Volume 10.3 fl (7.4-10.4); Monocytes Absolute Auto 0.8 K/mm3 (0.1-0.6); Monocytes Percent Auto 10.9 % (2.6-8.5); Neutrophils Absolute Auto 4.6 K/mm3 (1.3-6.7); Neutrophils Percent Auto 63.3 % (45.5-73.1); Platelet Count Result 209 k/mm3 (150-375); Red Blood Count 5.08 M/mm3 (4.6-6.20); Red Cell Distribution Width 13.5 % (11.5-14.5); White Blood Count 7.3 K/mm3 (4.5-10.0)
[2023-09-05 09:50] LABS: Immunoglobulin A 101 mg/dL (70-400); Immunoglobulin G 744 mg/dL (700-1600); Immunoglobulin M 48 mg/dL (40-230)
[2023-09-06 07:38] LABS: Protein, Total 6.5 g/dL (6.1-8.1)
[2023-09-06 14:34] LABS: Kappa\\Lambda Light Chains 2.65 (0.26-1.65); Lambda Light Chain 8.5 mg/L (5.7-26.3)
[2023-09-06 15:42] LABS: Albumin 3.9 g/dL (3.8-4.8); Alpha 1 Globulin 0.3 g/dL (0.2-0.3); Alpha 2 Globulin 0.7 g/dL (0.5-0.9); Beta 1 Globulin 0.5 g/dL (0.4-0.6); Gamma Globulin 0.8 g/dL (0.8-1.7)
== END 2023-09-05 08:22 | disposition home or self-care (01) ==
LOC: ANHLAB 08:23
PROVIDERS: Nurse Practitioner Family; Visit Provider Internal Medicine Hematology & Oncology
DX: D72.9 Disorder of white blood cells, unspecified (principal)
CPT/HCPCS: 36415; 82784; 83883; 84155; 84165; 85025

== ENCOUNTER 2024-03-17 09:20 | Outpatient (CLI) | payer OTHER, SELFPAY ==
[2024-03-17 09:44] LABS: Basophils Absolute Auto 0.1 K/mm3 (0.0-0.1); Basophils Percent Auto 0.8 % (0.2-1.2); Eosinophils Absolute Auto 0.3 K/mm3 (0-0.3); Eosinophils Percent Auto 4.1 % (0-4.4); Hematocrit 47.7 % (42.0-52.0); Hemoglobin 16.2 g/dL (14.0-18.0); Immature Granulocyte Absolute 0.01 K/mm3 (0.00-0.031); Immature Granulocyte Percent A 0.1 % (0-0.5); Immature Platelet Fraction Pct 6.6 % (0.9-11.2); Lymphocytes Absolute Auto 1.55 K/mm3 (0.9-3.2); Lymphocytes Percent Auto 21.8 % (18.3-44.2); Mean Corpuscular Hemoglobin 31.7 pg (26-34); Mean Corpuscular Volume 93.3 fl (80-100); Mean Platelet Volume 10.7 fl (7.4-10.4); Monocytes Absolute Auto 0.8 K/mm3 (0.1-0.6); Monocytes Percent Auto 10.8 % (2.6-8.5); Neutrophils Absolute Auto 4.4 K/mm3 (1.3-6.7); Neutrophils Percent Auto 62.4 % (45.5-73.1); Platelet Count Result 200 k/mm3 (150-375); Red Blood Count 5.11 M/mm3 (4.6-6.20); Red Cell Distribution Width 12.3 % (11.5-14.5); White Blood Count 7.1 K/mm3 (4.5-10.0)
[2024-03-17 13:01] LABS: Iron 72 ug/dL (49-181)
[2024-03-17 13:10] LABS: Percent Iron Saturation 21 % (20-50)
[2024-03-17 13:38] LABS: Alanine Aminotransferase 24 U/L (6-50); Albumin Level 4.3 g/dL (3.5-5.1); Alkaline Phosphatase 79 U/L (38-126); Anion Gap 8 mmol/L (4-12); Aspartate Amino Transferase 19 U/L (17-59); Bilirubin,Total 0.4 mg/dL (0.2-1.3); Blood Urea Nitrogen 14 mg/dL (9-20); Calcium 9.2 mg/dL (8.4-10.2); Carbon Dioxide 25 mmol/L (22-30); Chloride 108 mmol/L (98-107); Estimated Glomerular Filt Rate > 60; Glucose 100 mg/dL (65-110); Potassium 4.9 mmol/L (3.4-5.0); Sodium 141 mmol/L (137-145)
[2024-03-17 21:53] LABS: Folic Acid 6.5 ng/mL (2.76->20)
== END 2024-03-17 09:21 | disposition home or self-care (01) ==
LOC: ANHLAB 09:22
PROVIDERS: Visit Provider Internal Medicine Hematology & Oncology
DX: D50.9 Iron deficiency anemia, unspecified (principal)
CPT/HCPCS: 36415; 80053; 82607; 82728; 82746; 83540; 83550; 85025; 85055

== ENCOUNTER 2024-09-16 09:04 | Outpatient (CLI) | payer OTHER, SELFPAY ==
--- OUTSIDE RECORDS SUMMARY | 2024-09-16 09:19 | XMS_ITS | Referral Summary ---
Author Organization [facility] Address [facility] [place] [address] Care Team Providers Care Calender Roll Press Operator Name Role Phone Haley Arguello NP Primary Care Provider [phone] Shital De Oliveira MD Unavailable [phone] Encounters Date Type Department Care Team Description 07/07/2024 11:52 AM CDT - 07/07/2024 11:59 PM CDT Hospital Encounter [facility] [address] [place], [place] [id number] Right shoulder pain, unspecified chronicity Discharge Disposition: Discharge to home or self care 06/30/2024 Orders Only [facility] Orth[facility] Sports Medicine [facility] [facility] [address] [place] [address] Yunior Malloy PA Right shoulder pain, unspecified chronicity (Primary Dx) from Last 3 Months Allergies No known active allergies Medications OneTouch Delica Plus Lancet 33 gauge misc 2 (two) times a day 05/02/19 22 Active medical cannabis each Take 1 Dose by mouth as needed Active ferrous sulfate 325 mg (65 mg of elemental iron) tabletIndications :Iron Deficiency Anemia Take 1 tablet (65 mg of elemental iron total) by mouth daily with breakfast Active atorvastatin (LIPITOR) 20 mg tablet TAKE 1 TABLET BY MOUTH EVERY OTHER DAY AT BEDTIME 45 tablet 3 04/01/19 25 Active ergocalciferol (VITAMIN D) 50,000 unit capsuleIndication s:Vitamin D deficiency TAKE ONE CAPSULE BY MOUTH ONCE A WEEK ON SATURDAY 12 capsule 1 05/06/19 25 Active levothyroxine (SYNTHROID) 100 mcg tabletIndications :Acquired hypothyroidism Take 1 tablet (100 mcg total) by mouth daily 90 tablet 4 05/14/19 25 Active albuterol HFA (PROVENTIL HFA,VENTOLIN HFA,PROAIR HFA) 90 mcg/actuation inhalerIndication s:SOB (shortness of breath) Inhale 2 puffs every 6 (six) hours as needed for wheezing 3 each 4 05/14/19 25 026 Active Farxiga 10 mg tabletIndications :Controlled type 2 diabetes mellitus without complication, without long-term current use of insulin (HCC) TAKE 1 TABLET BY MOUTH EVERY DAY 90 tablet 1 05/19/19 25 Active cyclobenzaprine (FLEXERIL) 5 mg tabletIndications :Chronic right shoulder pain Take 1 tablet (5 mg total) by mouth 3 (three) times a day as needed for muscle spasms 30 tablet 1 06/12/19 25 Active celecoxib (CeleBREX) 200 mg capsule TAKE 1 CAPSULE(200 MG) BY MOUTH DAILY 100 capsule 1 06/26/19 25 Active OneTouch Ultra Test strip TEST TWICE DAILY BEFORE MEALS 200 strip 07/11/19 25 Active metFORMIN (GLUCOPHAGE) 500 mg tablet TAKE 1 TABLET BY MOUTH TWICE DAILY BEFORE MEALS 180 tablet 1 07/28/19 25 Active Ozempic 1 mg/dose (4 mg/3 mL) pen injector injection INJECT 1 MG UNDER THE SKIN ONE DAY A WEEK 3 mL 09/02/19 25 Active Ozempic 1 mg/dose (4 mg/3 mL) pen injector injection INJECT 1 MG UNDER THE SKIN ONCE A WEEK 3 mL 08/04/19 25 025 Discontinued Active Problems Problem Noted Date Diagnosed Date BMI 33.0-33.9,adult 06/11/2024 Assessment & Plan (06/11/2024 12:59 PM CDT): Discussed the patients BMI: The BMI is above average BMI management is complete. BMI follow-up includes: Nutrition Counseling and education provided Fatigue 05/13/2024 SOB (shortness of breath) 05/13/2024 Osteoarthritis of right acromioclavicular joint 05/07/2024 Internal derangement of shoulder, right 05/08/19 25 Chronic right shoulder pain 04/11/2024 Assessment & Plan (04/11/2024 9:52 PM TINNING MACHINE SET UP OPERATOR): Persistent bilateral shoulder pain from injuries over 20 years ago. Recommend referral to orthopedics for further evaluation. Will start Celebrex to help with discomfort. Await recommendations from Orthopedics Primary insomnia 11/14/2023 Status post lumbar spine cynthia silvia for decompression of spinal cord 10/01/2023 Low back pain 10/01/2023 Pars defect of lumbar spine 10/01/2023 Lumbar stress fracture 04/18/2023 Neurogenic claudication due to lumbar spinal arlene nosis 01/03/2023 BMI 34.0-34.9,adult 12/05/2022 Assessment & Plan (03/30/2024 8:31 AM TINNING MACHINE SET UP OPERATOR): Discussed the patient's BMI. The BMI is above average. BMI management plan is completed. BMI Follow-up includes: nutrition counseling, exercise counseling and education provided. Assessment & Plan (04/18/2023 9:18 AM TINNING MACHINE SET UP OPERATOR): Discussed the patient's BMI. The BMI is above average. BMI management plan is completed. BMI Follow-up includes: nutrition counseling, exercise counseling and education provided. Assessment & Plan (12/05/2022 1:28 PM CDT): Discussed the patients BMI: The BMI is above average BMI management is complete. BMI follow-up includes: Nutrition Counseling and education provided Pre-op examination 12/05/2022 Obesity (BMI 30-39.9) 11/05/2022 Assessment & Plan (05/13/2024 9:59 AM CDT): Discussed the patients BMI: The BMI is above average BMI management is complete. BMI follow-up includes: Nutrition Counseling and education provided Assessment & Plan (03/30/2024 8:32 AM TINNING MACHINE SET UP OPERATOR): Discussed the patient's BMI. The BMI is above average. BMI management plan is completed. BMI Follow-up includes: nutrition counseling, exercise counseling and education provided. Assessment & Plan (05/14/2023 10:03 AM CDT): Discussed the patient's BMI. The BMI is above average. BMI management plan is completed. BMI Follow-up includes: nutrition counseling, exercise counseling and education provided. Assessment & Plan (01/21/2023 3:13 PM TINNING MACHINE SET UP OPERATOR): Discussed the patients BMI: The BMI is above average BMI management is complete. BMI follow-up includes: Nutrition Counseling and education provided Assessment & Plan (11/05/2022 1:25 PM CDT): Discussed the patients BMI: The BMI is above average BMI management is complete. BMI follow-up includes: Nutrition Counseling and education provided Weight loss 10/19/2021 Assessment & Plan (10/19/2021 1:23 PM CDT): Encouraged continued attempts at heart healthy diet, exercise, weight loss. Right wrist pain 09/28/2021 Erythrocytosis 09/07/2021 Hereditary hemochromatosis 09/07/2021 Obesity, morbid, BMI 40.0-49.9 08/31/2021 Assessment & Plan (11/14/2023 9:25 AM CDT): Discussed the patient's BMI. The BMI is above average. BMI management plan is completed. BMI Follow-up includes: nutrition counseling, exercise counseling and education provided. Sternum pain 07/31/2021 Assessment & Plan (07/31/2021 7:33 PM CDT): Discussed likely inflammation due to trauma in previous years of life. Will evaluate further with imaging, will notify him of results as they become available. Chronic bilateral low back pain without sciatica 06/28/2021 Assessment & Plan (10/19/2021 1:22 PM CDT): Will change flexeril to norflex bid/prn. Will try to refer to [facility] - he was advised to call them to see if insurance is accepted. Assessment & Plan (07/31/2021 7:32 PM CDT): Advised of signs and symptoms of cauda equina syndrome. Advised reporting to the er if he experiences these concerns. He has mri ls spine and appt with neurosurgeon pending, will keep these. Assessment & Plan (06/28/2021 9:17 AM CDT): Will initiate flexeril q8h prn. Advised no driving or operating heavy machinery for 6h after taking. Will refer to PT for further evaluation and treatment Diastasis recti 06/28/2021 Assessment & Plan (06/28/2021 9:17 AM CDT): Will evaluate further with abdominal US as it extends to the umbilical region, however discussed that it is likely nonsurgical. Acromioclavicular joint arthritis 06/26/2021 Pain in joint of right shoulder 06/26/2021 Partial thickness rotator cuff tear 06/26/2021 Physical exam, annual 05/25/2021 Controlled type 2 diabetes m ellitus without complication, without long-term current use of insulin 05/25/2021 Assessment & Plan (04/11/2024 9:52 PM TINNING MACHINE SET UP OPERATOR): Patient is due for diabetes labs. Will obtain prior to his next visit with his PCP Assessment & Plan (10/19/2021 1:22 PM CDT): Continue care per endocrinology Patient advised goal glucose fasting 80-120. They were reminded to contact the office if having difficulty keeping sugar in goal ranges. They were advised to not skip meals and maintain a heart healthy diet (cut back on processed foods, red meat, fried foods). They were reminded to exercise 4x/week for 30min each session. Assessment & Plan (07/31/2021 7:31 PM CDT): Patient advised goal glucose fasting 80-120. They were reminded to contact the office if having difficulty keeping sugar in goal ranges. They were advised to not skip meals and maintain a heart healthy diet (cut back on processed foods, red meat, fried foods). They were reminded to exercise 4x/week for 30min each session. Fasting labs entered, will notify patient of results as available Assessment & Plan (06/28/2021 9:18 AM CDT): Congratulated on sugar control Assessment & Plan (05/25/2021 6:14 PM CDT): Patient advised goal glucose fasting 80-120. They were reminded to contact the office if having difficulty keeping sugar in goal ranges. They were advised to not skip meals and maintain a heart healthy diet (cut back on processed foods, red meat, fried foods). They were reminded to exercise 4x/week for 30min each session. Fasting labs entered, will notify patient of results as available Acquired hypothyroidism 05/25/2021 Assessment & Plan (04/11/2024 9:52 PM TINNING MACHINE SET UP OPERATOR): Check labs. Assessment & Plan (10/19/2021 1:22 PM CDT): Continue care per endocrinology Assessment & Plan (05/25/2021 6:13 PM CDT): Continue working with endocrinology Continue medications the same at this time Vitamin D deficiency 05/25/2021 Assessment & Plan (05/25/2021 6:14 PM CDT): Will evaluate further on labs Tobacco use 05/25/2021 Assessment & Plan (07/31/2021 7:32 PM CDT): Advised continued attempts at smoking cessation Assessment & Plan (06/28/2021 9:17 AM CDT): Encouraged smoking cessation. Will initiate wellbutrin every day. Assessment & Plan (05/25/2021 6:15 PM CDT): Advised smoking cessation, he declines aid Acute pain of right shoulder 05/25/2021 Assessment & Plan (05/25/2021 6:15 PM CDT): We reviewed xray R shoulder from care everywhere Will refer for further evaluation and treatment - he asks for second opinion with [facility] Spinal stenosis of lumbar region 05/25/2021 Assessment & Plan (05/25/2021 6:15 PM CDT): Will refer for second opinion per patient request Resolved Problems Problem Noted Date Diagnosed Date Resolved Date BMI 32.0-32.9,adult 05/03/2022 01/22/20 23 BMI 33.0-33.9,adult 05/25/2021 05/04/19 Assessment & Plan (05/25/2021 6:14 PM CDT): Discussed the patient's BMI. The BMI is above average. BMI management plan is completed. BMI Follow-up includes: nutrition counseling, exercise counseling and education provided. Obesity (BMI 30.0-34.9) 05/25/202110/2022 Assessment & Plan (05/25/2021 6:14 PM CDT): Discussed the patient's BMI. The BMI is above average. BMI management plan is completed. BMI Follow-up includes: nutrition counseling, exercise counseling and education provided. Immunizations Immunization Administration Dates Next Due Influenza, Unspecified 02/26/2024(Deferr ed: Patient Refused),02/26/2024(Deferred: Patient Refused),11/14/2023(Deferred: Allergy),05/14/2023(Deferred: Patient Refused),04/18/2023(Deferred: Patient Refused),02/25/2023(Deferred: Patient Refused),02/25/2023(Deferred: Patient Refused),02/25/2023(Deferred: Allergy),02/25/2023(Deferred: Patient Refused),02/25/2023(Deferred: Patient Refused),01/21/2023(Deferred: Patient Refused),12/05/2022(Deferred: Patient Refused),11/05/2022(Deferred: Patient Refused),05/03/2022(Deferred: Patient Refused),02/25/2022(Deferred: Patient Refused),02/25/2022(Deferred: Patient Refused),02/25/2022(Deferred: Patient Refused),03/29/2021(Deferred: Patient Refused),03/28/2021(Deferred: Patient Refused) Tdap 07/31/2021 Social History Tobacco Use Types Packs/Day Years Used Date Smoking Tobacco: Former Cigarettes 0.8 25 1 7 - 2021 Smokeless Tobacco: Never Tobacco Cessation:Counseling Given: Not Answered Comments:Dcd January 2022 [facility] Utilities Answer Date Recorded In the past 12 months has [employer], [employer], oil, or water [employer] threatened to shut off services in your home? No 10/18/2023 Social Connection and Isolat ion Panel [NHANES] Answer Date Recorded In a typical week, how many times do you talk on the phone with family, friends, or neighbors? More than three times a week 10/18/2023 How often do you get togethe r with friends or relatives? More than three times a week 10/18/2023 How often do you attend chur or jainism services? 1 to 4 times per year 10/18/2023 Do you belong to any clubs o r organizations such as yazidi groups, unions, fraternal or athletic groups, or school groups? No 10/18/2023 How often do you attend meet ings of the clubs or organizations you belong to? Never 10/18/2023 Are you , , di vorced, , never , or living with a partner? Never 10/18/2023 AUDIT-C Answer Date Recorded Q1: How often do you have a drink containing alc ohol? Monthly or less 04/06/2024 Q2: How many drinks containi ng alcohol do you have on a typical day when you are drinking? 1 or 2 04/06/2024 Q3: How often do you have si x or more drinks on one occasion? Never 04/06/2024 Overall Financial Resource Strain (CARDIA) Answe r Date Recorded How hard is it for you to pa y for the very basics like food, housing, medical care, and heating? Not hard at all 10/18/2023 PHQ-2 Answer Date Recorded PHQ-2 Total Score (If total score is 3 or more points, staff should administer the PHQ-9) 0 06/11/2024 Hunger Vital Sign Answer Date Recorded Within the past 12 months, y ou worried that your food would run out before you got the money to buy more. Never true 10/18/19 24 Within the past 12 months, t he food you bought just didn't last and you didn't have money to get more. Never true 10/18/2023 PRAPARE - Transportation Answer Date Re corded In the past 12 months, has l ack of transportation kept you from medical appointments or from getting medications? No 09/26 In the past 12 months, has l ack of transportation kept you from meetings, work, or from getting things needed for daily living? No 10/18/2023 Housing Stability Vital Sign Answer Jimmy e Recorded In the last 12 months, was t here a time when you were not able to pay the mortgage or rent on time? No 01/04/2023 In the last 12 months, how many places have you lived? 1 01/04/2023 In the last 12 months, was t here a time when you did not have a steady place to sleep or slept in a custodial (including now)? No 01/04/2023 Housing Stability Vital Sign Answer Jimmy e Recorded In the last 12 months, was t here a time when you were not able to pay the mortgage or rent on time? No 10/18/2023 In the past 12 months, how m any times have you moved where you were living? 0 10/18/2023 At any time in the past 12 m [facility], were you homeless or living in a custodial (including now)? No 10/18/2023 Personal Safety Answer Date Recorded Have you ever been in or are you currently in a harmful physical or emotional relationship or is someone making you feel afraid or unsafe? Denies 10/17/2023 Sex and Gender Information Value Date Recorded Sex Assigned at Not on file Legal Sex Male 3:53 PM TINNING MACHINE SET UP OPERATOR Gender Identity Male 06/03/2023 3:19 PM CDT Sexual Orientation Straight 06/03/2023 3: 19 PM CDT Occupation Industry Job Start Date Job End Date unemployed Not on file Not on file Not on file Last Filed Vital Signs Vital Sign Reading Time Taken Comments Blood Pressure 102/60 06/11/2024 12:56 PM CDT Pulse 63 06/11/2024 12:56 PM CDT Temperature 36.7 C (98.1 F) 06/11/2024 12:56 PM CDT Respiratory Rate 18 04/06/2024 1:21 PM TINNING MACHINE SET UP OPERATOR Oxygen Saturation 95% 06/11/2024 12:56 PM CDT Inhaled Oxygen Concentration - - Weight 118.8 kg (262 lb) 06/11/2024 12:56 PM CDT Height 188 cm (6' 2) 06/11/2024 12:56 PM CDT Body Mass Index 33.64 06/11/2024 12:56 PM CDT Plan of Treatment Not on file Medical Devices Implanted Type Area Learning And Development Coordinator Device Identifier Shelf Expiration Date Model / Serial / Lot Depuy Synthes Spine Substitute Bone Graft Fibergraft Gps Medium Putty 6cc [id number] - [id number] Implanted:Qty: 1 on 10/17/2023 by Huang Bhatt MD at [facility] N/A: Spine Lumbar Depuy Synthes Spine [id number] 09/05/2025 [id number] / / [id number] Atmar 7x45 Viper Screw Implanted:Qty: 4 on 10/17/2023 by Huang Bhatt MD at [facility] N/A: Spine Lumbar [place] [id number] / / [place] 35mm Rods Implanted:Qty: 2 on 10/17/2023 by Huang Bhatt MD at [facility] N/A: Spine Lumbar [place] [id number] / / [place] Set Screws Implanted:Qty: 4 on 10/17/2023 by Huang Bhatt MD at [facility] N/A: Spine Lumbar [place] [id number] / / Tamar [employer]-Wires Implanted:Qty: 4 on 10/17/2023 by Huang Bhatt MD at [facility] N/A: Spine Lumbar [place] [id number] / / Procedures Procedure Name Priority Date/Time Associated Diagnosis Comments FLUORO GUIDED INJECTION SHOULDER RIGHT Schedule Routine, Read Routine (OP Routine) 07/07/2024 12:41 PM CDT Right shoulder pain, unspecified chronicity COMPREHENSIVE METABOLIC PANEL Routine 04/28/2024 7:39 AM TINNING MACHINE SET UP OPERATOR Controlled type 2 diabetes mellitus without complication, without long-term current use of insulin (HCC) HEMOGLOBIN A1C Routine 04/28/2024 7:39 AM TINNING MACHINE SET UP OPERATOR Controlled type 2 diabetes mellitus without complication, without long-term current use of insulin (HCC) LIPID PANEL Routine 04/28/2024 7:39 AM TINNING MACHINE SET UP OPERATOR Controlled type 2 diabetes mellitus without complication, without long-term current use of insulin (HCC) ALBUMIN CREATININE RATIO, URINE Routine 04/28/2024 7:39 AM TINNING MACHINE SET UP OPERATOR Controlled type 2 diabetes mellitus without complication, without long-term current use of insulin (HCC) DIABETIC EYE EXAM Routine 08/27/2023 10: 45 AM CDT PSA SCREEN Routine 05/06/2023 8:23 AM CDT from Last 3 Months or Most Recently Relevant to Health Maintenance Results * FL Fluoro Guided Injection Shoulder Right (07/07/2024 12:41 PM CDT) Anatomical Region Laterality Modality Shoulder Right Computed Radiogr aphy, Computed Radiography 07/07/2024 1:40 PM CDT Narrative 07/07/2024 1:41 PM CDT EXAM DESCRIPTION: FL FLUORO GUIDED INJECTION SHOULDER RIGHT REASON FOR STUDY: Right shoulder pain. COMPARISON: Right shoulder radiographs 04/06/2024 RADIATION DOSE: Needle placement was documented with a fluoroscopic image. Dose: 17.52 uGym? Dose Area Product (DAP) TECHNIQUE/FINDINGS: Risk, benefits, and alternatives of the procedure were explained to the patient and informed consent was obtained. The area was prepped and draped in the usual sterile fashion. Local anesthesia was obtained with a small amount of 1% lidocaine. A 22-gauge spinal needle was directed into the shoulder joint space and a small amount of Omnipaque 240 was injected to confirm intra-articular placement. 40 mg of Kenalog and 2 cc of 0.25% bupivacaine were injected without complication. Patient reported no complaints following the injection. IMPRESSION: Successful right shoulder steroid injection. THIS IS AN ELECTRONICALLY VERIFIED FINAL REPORT 07/07/2024 1:41 PM - Electronically signed by Eric Nobles.D. AM T: Report ID: [id number] Reading Location: [id number] Procedure Note Eric Stearns MD - 07/07/2024 EXAM DESCRIPTION: FL FLUORO GUIDED INJECTION SHOULDER RIGHT REASON FOR STUDY: Right shoulder pain. COMPARISON: Right shoulder radiographs 04/06/2024 RADIATION DOSE: Needle placement was documented with a fluoroscopicimage. Dose: 17.52 uGym? Dose Area Product (DAP) TECHNIQUE/FINDINGS: Risk, benefits, and alternatives of the procedure were explained to the patient and informed consent was obtained. The area was prepped and draped in the usual sterile fashion. Local anesthesia was obtained with a small amount of 1% lidocaine. A 22-gauge spinal needlewas directed into the shoulder joint space and a small amount of Omnipaque 240was injected to confirm intra-articular placement. 40 mg of Kenalog and 2 ccof 0.25% bupivacaine were injected without complication. Patient reportedno complaints following the injection. IMPRESSION: Successful right shoulder steroid injection. THIS IS AN ELECTRONICALLY VERIFIED FINAL REPORT 07/07/2024 1:41 PM - Electronically signed by Eric Stearns M.D. T: Report ID: [id number] Reading Location: [id number] Yunior DAVE IMG FLUOROSCOPY DEBORAH KYLE Final Result * Albumin Creatinine Ratio, Urine (04/28/2024 7:39 AM TINNING MACHINE SET UP OPERATOR) Creatinine, ur 71 20 - 320 mg/dL [facility] Microalbumin, ur 0.2 See Note: mg/dL [facility] Comment: Reference Range: Reference Range Not established Microalbumin/creat ratio 3 <30 mg/g creat [facility] Comment: The ADA defines abnormalities in albumin excretion as follows: Albuminuria Category Result (mg/g creatinine) Normal to Mildly increased <30 Moderately increased 30-299 Severely increased > OR = 300 The ADA recommends that at least two of three specimens collected within a 3-6 month period be abnormal before considering a patient to be within a diagnostic category. Urine 04/28/2024 7:39 AM TINNING MACHINE SET UP OPERATOR 04/28/2024 7:39 AM TINNING MACHINE SET UP OPERATOR Narrative [facility] - 04/29/2024 4:20 AM TINNING MACHINE SET UP OPERATOR FASTING:YES FASTING: YES Carmen DAVE LAB URINE ORDERABLES Final Result [facility] [address] [facility] [place] [address] * Hemoglobin A1c (04/28/2024 7:39 AM TINNING MACHINE SET UP OPERATOR) Hgb A1C 5.5 <5.7 % [facility] Hgb [facility] Comment: For the purpose of screening for the presence of diabetes: <5.7% Consistent with the absence of diabetes 5.7-6.4% Consistent with increased risk for diabetes (prediabetes) > or =6.5% Consistent with diabetes This assay result is consistent with a decreased risk of diabetes. Currently, no consensus exists regarding use of hemoglobin A1c for diagnosis of diabetes in children. According to [place] Diabetes Association (ADA) guidelines, hemoglobin A1c <7.0% represents optimal control in non- diabetic patients. Different metrics may apply to specific patient populations. Standards of Medical Care in Diabetes(ADA). Blood 04/28/2024 7:39 AM TINNING MACHINE SET UP OPERATOR 04/28/2024 7:39 AM TINNING MACHINE SET UP OPERATOR Narrative [facility] - 04/29/2024 4:20 AM TINNING MACHINE SET UP OPERATOR FASTING:YES FASTING: YES Carmen DAVE LAB BLOOD ORDERABLES Final Result [facility] [id number] [place] [address] * (ABNORMAL) Lipid panel (04/28/2024 7:39 AM TINNING MACHINE SET UP OPERATOR) Cholesterol 125 <200 mg/dL [facility] HDL 40 > OR = 40 mg/dL [facility] Triglycerides 216(H) <150 mg/dL [facility] Comment: If a non-fasting specimen was collected, consider repeat triglyceride testing on a fasting specimen if clinically indicated. Lexi et al. J. of Clin. Lipidol. 2015;9:129-169. LDL 57 mg/dL (calc) [facility] Tran Comment: Reference range: <100 Desirable range <100 mg/dL for primary prevention; <70 mg/dL for patients with CHD or diabetic patients with > or = 2 CHD risk factors. LDL-C is now calculated using the David calculation, which is a validated novel method providing better accuracy than the Friedewald equation in the estimation of LDL-C. Cruz SS et al. SAJI. 2013;310(19): 9858-7922 (http://education.Cortica/faq/JEZ105) Chol/HDL ratio 3.1 <5.0 (calc) Renetta Tran Non-HDL, (LDL+VLDL) 85 <130 mg/dL (calc) [facility] Tran Comment: For patients with diabetes plus 1 major ASCVD risk factor, treating to a non-HDL-C goal of <100 mg/dL (LDL-C of <70 mg/dL) is considered a therapeutic option. Blood 04/28/2024 7:39 AM TINNING MACHINE SET UP OPERATOR 04/28/2024 7:39 AM TINNING MACHINE SET UP OPERATOR Narrative [facility] - 04/29/2024 4:20 AM TINNING MACHINE SET UP OPERATOR FASTING:YES FASTING: YES Carmen [facility] LAB BLOOD ORDERABLES Final Result [facility] [address] [place] [address] * (ABNORMAL) Comprehensive metabolic panel (04/28/2024 7:39 AM TINNING MACHINE SET UP OPERATOR) Glucose 101(H) 65 - 99 mg/dL Renetta Tran Comment: Fasting reference interval For someone without known diabetes, a glucose value between 100 and 125 mg/dL is consistent with prediabetes and should be confirmed with a follow-up test. BUN 15 7 - 25 mg/dL Renetta MerchantCircleMagi Tran Creatinine 0.91 0.70 - 1.30 mg/dL Renetta Tran eGFR 102 > OR = 60 mL/min/1.7 3m2 Renetta MerchantCircleMagi Tran BUN/creat ratio SEE NOTE: 6 - 22 (calc) Akella-Marcellus Tran Comment: Not Reported: BUN and Creatinine are within reference range. Sodium 138 135 - 146 mmol/L Renetta CohnBramasolMarcellus Tran Potassium, pl 4.4 3.5 - 5.3 mmol/L Renetta Cohn-S santosh Tran Chloride 102 98 - 110 mmol/L Renetta Cohn-Marcellus Tran CO2 29 20 - 32 mmol/L Renetta Cohn-Marcellus Tran Calcium 9.4 8.6 - 10.3 mg/dL Renetta Cohn-Marcellus Tran Protein, sr 7.0 6.1 - 8.1 g/dL Renetta MerchantCircle-S santosh Tran Albumin 4.9 3.6 - 5.1 g/dL Renetta MerchantCircle-S santosh Tran GLOBULIN 2.1 1.9 - 3.7 g/dL (calc) Renetta Cohn-Marcellus Tran Alb/glob ratio 2.3 1.0 - 2.5 (calc) Akella-Marcellus Tran Bilirubin, total 0.6 0.2 - 1.2 mg/dL Renetta Toppermost, Corp.Marcellus Tran Alk phos 82 35 - 144 U/L Renetta CohnBramasolMarcellus Tran AST 16 10 - 35 U/L Renetta Toppermost, Corp.Marcellus Tran ALT (SGPT) 17 9 - 46 U/L Where's UpMarcellus Tran Blood 04/28/2024 7:39 AM TINNING MACHINE SET UP OPERATOR 04/28/2024 7:39 AM TINNING MACHINE SET UP OPERATOR Narrative [facility] - 04/29/2024 4:20 AM TINNING MACHINE SET UP OPERATOR FASTING:YES FASTING: YES Result [facility] Carmen DAVE LAB BLOOD ORDERABLES Final Result [facility] [address] [place] [address] * Diabetic Eye Exam (08/27/2023 10:45 AM CDT) Result [facility] Historical Provider HEALTH MAINTENANCE Edited Result - Final * PSA screen (05/06/2023 8:23 AM CDT) PSA 1.08 < OR = 4.00 ng/mL Akella- enexa Comment: The total PSA value from this assay system is standardized against the WHO standard. The test result will be approximately 20% lower when compared to the equimolar-standardized total PSA (Alphonso Bruce). Comparison of serial PSA results should be interpreted with this fact in mind. This test was performed using the Siemens chemiluminescent method. Values obtained from different assay methods cannot be used interchangeably. PSA levels, regardless of value, should not be interpreted as absolute evidence of the presence or absence of disease. 05/06/2023 8:23 AM CDT 05/06/2023 8:24 AM CDT [facility] - 05/07/2023 4:35 AM CDT FASTING:YES FASTING: YES us Haley Arguello NP LAB BLOOD ORDERABLES Final Re sult R[facility] [address] [place] [address] from Last 3 Months or Most Recently Relevant to Health Maintenance Insurance [facility] Advance Directives For more information, please contact: [phone] * Full Code (Latest Code Status on File) Date Activated Date Inactivated Comments 10/17/2023 11:53 AM 10/18/2023 4:10 PM * Full Code Date Activated Date Inactivated Comments 01/03/2023 9:36 PM 01/05/2023 8:18 PM Care Teams Calender Roll Press Operator Relationship Specialty Start Date End Date Haley Arguello NP [address] [facility] [address] [place] [address] PCP - General Internal Medicine 11/08/22 Shital De Oliveira MD [address] [address] [place] [address] Consulting Physician Internal Medicine 02/20/23
--- OUTSIDE RECORDS SUMMARY | 2024-09-16 09:19 | XMS_ITS | Clinical Summary ---
Author Organization [facility] Address [address] [place] [address] Care Team Providers Care Service Support Representative Name Role Phone Haley Arguello NP Primary Care Provider [phone] Shital De Oliveira MD Unavailable [phone] Allergies No known active allergies Medications OneTouch [...] 05/07/2024 Internal derangement of shoulder, right 05/08/19 Chronic right shoulder pain 04/11/2024 Assessment & Plan (04/11/2024 9:52 PM C ENGINEER): Persistent bilateral shoulder pain from injuries over [...] 12/05/2022 Assessment & Plan (03/30/2024 8:31 AM C ENGINEER): Discussed the patient's BMI. The BMI is above average. BMI management plan is completed. BMI Follow-up includes: nutrition counseling, exercise counseling and education provided. Assessment & Plan (04/18/2023 9:18 AM C ENGINEER): Discussed the patient's BMI. The BMI is [...] provided Assessment & Plan (03/30/2024 8:32 AM C ENGINEER): Discussed the patient's BMI. The BMI is above average. BMI management plan is completed. BMI Follow-up includes: nutrition counseling, exercise counseling and education provided. Assessment & Plan (05/14/2023 10:03 AM CDT): Discussed the patient's BMI. The BMI is above average. BMI management plan is completed. BMI Follow-up includes: nutrition counseling, exercise counseling and education provided. Assessment & Plan (01/21/2023 3:13 PM C ENGINEER): Discussed the patients BMI: The BMI is [...] 05/25/2021 Assessment & Plan (04/11/2024 9:52 PM C ENGINEER): Patient is due for diabetes labs. Will [...] 05/25/2021 Assessment & Plan (04/11/2024 9:52 PM C ENGINEER): Check labs. Assessment & Plan (10/19/2021 1:22 [...] 05/03/2022 01/22/20 23 BMI 33.0-33.9,adult 05/25/2021 05/04/19 23 Assessment & Plan (05/25/2021 6:14 PM CDT): Discussed the patient's BMI. The BMI is above average. BMI management plan is completed. BMI Follow-up includes: nutrition counseling, exercise counseling and education provided. Obesity (BMI 30.0-34.9) 05/25/2021 030 10/2022 Assessment & Plan (05/25/2021 6:14 PM CDT): Discussed the patient's BMI. The BMI is above average. BMI management plan is completed. BMI Follow-up includes: nutrition counseling, exercise counseling and education provided. Encounters Date Type Department Care Team Description 07/07/2024 11:52 AM CDT - 07/07/2024 11:59 PM CDT Hospital Encounter [facility] [address] [place] [address] Right shoulder pain, unspecified chronicity Discharge Disposition: Discharge to home or self care 06/30/2024 Orders Only [facility] [address] [facility] [address] [place] [phone] Yunior Malloy PA Right shoulder pain, unspecified chronicity (Primary Dx) from Last 3 Months Immunizations Immunization Administration Dates Next Due Influenza, Unspecified 02/26/2024(Deferr ed: Patient Refused),02/26/2024(Deferred: Patient Refused),11/14/2023(Deferred: Allergy),05/14/2023(Deferred: Patient Refused),04/18/2023(Deferred: Patient Refused),02/25/2023(Deferred: Patient Refused),02/25/2023(Deferred: Patient Refused),02/25/2023(Deferred: Allergy),02/25/2023(Deferred: Patient Refused),02/25/2023(Deferred: Patient Refused),01/21/2023(Deferred: Patient Refused),12/05/2022(Deferred: Patient Refused),11/05/2022(Deferred: Patient Refused),05/03/2022(Deferred: Patient Refused),02/25/2022(Deferred: Patient Refused),02/25/2022(Deferred: Patient Refused),02/25/2022(Deferred: Patient Refused),03/29/2021(Deferred: Patient Refused),03/28/2021(Deferred: Patient Refused) Tdap 07/31/2021 Surgical History Surgery Date Site/Laterality Comments APPENDECTOMY KNEE SURGERY 02/25/2001 - 02/24/2002 Left SPINE SURGERY 01/03/2023 BILATERAL LUMBAR 4 LUMBAR 5 HEMILAMINOTMIES, MEDIAL FACETECTOMY, AND FORAMINAL DECOMPRESSION USE OF MICROSCOPY USE OF FLUOROSCOPY FLUORO GUIDED INJECTION SHOULDER RIGHT 07/07/2024 Right Medical History Medical History Date Comments Thyroid disease hypo Lumbar stenosis 01/22/2021 Mild L4-L5 Lumbar spondylosis 01/22/2021 Mild Retrolisthesis of vertebrae 02/06/2021 Mild L3 on L4, L4 on L5 Osteoarthritis of right acro mioclavicular joint 01/25/2021 bilateral, limited ROM at ti mes in arms Back pain Hyperlipidemia Type 2 diabetes mellitus (HCC) 12/25/2022 ~ for 1 year Full dentures Obesity Hypothyroidism Anemia PIA Family History Medical History Relation Name Comments No Known Problems Father Diabetes Mother Relation Name Status Comments Father Mother Alive Social History Tobacco Use Types Packs/Day Years Used Date Smoking Tobacco: Former Cigarettes 0.8 25 1 997 - 2021 Smokeless Tobacco: Never Tobacco Cessation:Counseling Given: Not Answered Comments:Dcd January 2022 [facility] Utilities Answer Date Recorded In the past 12 months has e electric, gas, oil, or water [employer] threatened to shut off services in your [...] 10/18/2023 How often do you attend chur ch or druze services? 1 to 4 times per year 10/18/2023 Do you belong to any clubs o r organizations such as islam groups, unions, fraternal or athletic groups, or [...] place to sleep or slept in a mcfp (including now)? No 01/04/2023 Housing Stability Vital Sign Answer Jimmy e Recorded In the last 12 months, was t here a time when you were not able to pay the mortgage or rent on time? No 10/18/2023 In the past 12 months, how m any times have you moved where you were living? 0 10/18/2023 At [facility] time [facility] the [facility] were you homeless or living in a mcfp (including now)? No 10/18/2023 Personal Safety Answer Date Recorded Have you ever been in or are you currently in a harmful physical or emotional relationship or is someone making you feel afraid or unsafe? Denies 10/17/2023 Sex and Gender Information Value Date Recorded Sex Assigned at Not on file Legal Sex Male 3:53 PM C ENGINEER Gender Identity Male 06/03/2023 3:19 PM CDT Sexual Orientation Straight 06/03/2023 3: 19 PM CDT Occupation Industry Job Start Date Job End Date unemployed Not on file Not on file Not on file Obstetrics History Last Filed Vital Signs Vital Sign Reading Time Taken Comments Blood Pressure 102/60 06/11/2024 12:56 PM CDT Pulse 63 06/11/2024 12:56 PM CDT Temperature 36.7 C (98.1 F) 06/11/2024 12:56 PM CDT Respiratory Rate 18 04/06/2024 1:21 PM C ENGINEER Oxygen Saturation 95% 06/11/2024 12:56 PM CDT Inhaled Oxygen Concentration - - Weight 118.8 kg (262 lb) 06/11/2024 12:56 PM CDT Height 188 cm (6' 2) 06/11/2024 12:56 PM CDT Body Mass Index 33.64 06/11/2024 12:56 PM CDT Plan of Treatment Health Maintenance Due Date Last Done Comments Hepatitis C Screening 1972 Foot Exam 1972 Hepatitis B Screening 1990 Pneumococcal vaccine <65 (1 of 2 - PCV) 08/03/1991 Zoster Vaccine (1 of 2) 2022 Covid-19 Vaccine (3 - 2023-2 5 season) 2023 02/20/2021, 05/30/2020 Dilated Eye Exam 08/26/2024 08/27/2023, 05/17/2021 Influenza Vaccine (#1) 2024 Hemoglobin A1C 10/29/2024 04/28/2024, 09/25, 05/06/2023, Additional history exists Albumin Creatinine Ratio, Urine 04/28/2025 , 11/14/2023 Lipid Panel 04/28/2025 04/28/2024, 04/25, 11/23/2022, Additional history exists eGFR 04/28/2025 04/28/2024, 10/26, 10/07/2023, Additional history exists Prostate Cancer Screening-PSA 05/05/2025 05/06/2023, 11/23/2022 Depression Screening 06/11/2025 06/11/2024, 05/13/2024, 03/30/2024, Additional history exists Regular Well Visit/Exam 18-64 06/11/2025 06/11/2024, 05/14/2023 DTaP/Tdap/Td Vaccine (2 - Td or Tdap) 08/01/2031 07/31/2021 Colon Cancer Screening-Colonoscopy 03/11/20332023 Medical Devices Implanted Type Area Deicer Repairer Pneumatic Device Identifier Shelf Expiration Date Model / Serial / Lot Depuy Synthes Spine Substitute Bone Graft Fibergraft Gps Medium Putty 6cc [id number] - [id number] Implanted:Qty: 1 on 10/17/2023 by Huang Bhatt MD at [facility] N/A: Spine Lumbar Depuy Synthes Spine [id number] 09/05/2025 [id number] / / [id number] Tamar 7x45 Viper Screw Implanted:Qty: 4 on 10/17/2023 by Huang Bhatt MD at [facility] N/A: Spine Lumbar Tamar [id number] / / Tamar 35mm Rods Implanted:Qty: 2 on 10/17/2023 by Haung Bhatt MD at [facility] N/A: Spine Lumbar Alta [id number] / / Alta Set Screws Implanted:Qty: 4 on 10/17/2023 by Huang Bhatt MD at [facility] N/A: Spine Lumbar Tamar [id number] / / Alta K-Wires Implanted:Qty: 4 on 10/17/2023 by Huang Bhatt MD at [facility] N/A: Spine Lumbar Alta [id number] / / Procedures Procedure Name Priority Date/Time Associated Diagnosis Comments FLUORO GUIDED INJECTION SHOULDER RIGHT Schedule Routine, Read Routine (OP Routine) 07/07/2024 12:41 PM CDT Right shoulder pain, unspecified chronicity COMPREHENSIVE METABOLIC PANEL Routine 04/28/2024 7:39 AM C ENGINEER Controlled type 2 diabetes mellitus without complication, without long-term current use of insulin (HCC) HEMOGLOBIN A1C Routine 04/28/2024 7:39 AM C ENGINEER Controlled type 2 diabetes mellitus without complication, without long-term current use of insulin (HCC) LIPID PANEL Routine 04/28/2024 7:39 AM C ENGINEER Controlled type 2 diabetes mellitus without complication, without long-term current use of insulin (HCC) ALBUMIN CREATININE RATIO, URINE Routine 04/28/2024 7:39 AM C ENGINEER Controlled type 2 diabetes mellitus without complication, [...] - Electronically signed by Eric Stearns M.D. AM T: Report ID: [id number] Reading Location: [id number] Procedure Note Eric Stearns MD - 07/07/2024 [...] - Electronically signed by Eric Stearns M.D. AM T: Report ID: [id number] Reading Location: [id number] uYnior DAVE IMG FLUOROSCOPY DEBORAH KYLE Final Result * Albumin Creatinine Ratio, Urine (04/28/2024 7:39 AM C ENGINEER) Creatinine, ur 71 20 - 320 mg/dL [...] a diagnostic category. Urine 04/28/2024 7:39 AM C ENGINEER 04/28/2024 7:39 AM C ENGINEER Narrative [facility] - 04/29/2024 4:20 AM C ENGINEER FASTING:YES FASTING: YES Carmen DAVE LAB URINE ORDERABLES Final Result Performing Organization Address City/[facility]/ZIP Co de Phone Number [facility] [address] [place] [address] * Hemoglobin A1c (04/28/2024 7:39 AM C ENGINEER) Hgb A1C 5.5 <5.7 % of total Hgb [facility] Comment: For the purpose of screening for the presence of diabetes: <5.7% Consistent with the absence of diabetes 5.7-6.4% Consistent with increased risk for diabetes (prediabetes) > or =6.5% Consistent with diabetes This assay result is consistent with a decreased risk of diabetes. Currently, no consensus exists regarding use of hemoglobin A1c for diagnosis of diabetes in children. According to [place] Diabetes Association (ADA) guidelines, hemoglobin A1c <7.0% represents optimal control in non- diabetic patients. Different metrics may apply to specific patient populations. Standards of Medical Care in Diabetes(ADA). Blood 04/28/2024 7:39 AM C ENGINEER 04/28/2024 7:39 AM C ENGINEER Narrative [facility] - 04/29/2024 4:20 AM C ENGINEER FASTING:YES FASTING: YES Carmen DAVE LAB BLOOD ORDERABLES Final Result [facility] [address] [place] [address] * (ABNORMAL) Lipid panel (04/28/2024 7:39 AM C ENGINEER) Cholesterol 125 <200 mg/dL Renetta KitesMarcellus frost Marc HDL 40 > OR = 40 mg/dL Renetta KitesMarcellus santosh Tran Triglycerides 216(H) <150 mg/dL Renetta YuanVMagi Tran Comment: If a non-fasting specimen was collected, consider repeat triglyceride testing on a fasting specimen if clinically indicated. Lexi et al. J. of Clin. Lipidol. 2015;9:129-169. LDL 57 mg/dL (calc) Renetta CohnLindaMarcellus santosh Tran Comment: Reference range: <100 Desirable range <100 mg/dL for primary prevention; <70 mg/dL for patients with CHD or diabetic patients with > or = 2 CHD risk factors. LDL-C is now calculated using the David calculation, which is a validated novel method providing better accuracy than the Friedewald equation in the estimation of LDL-C. Cruz VICENTE et al. SAJI. 2013;310(19): 2689-7413 (http://education.Gimahhot/faq/IXU402) Chol/HDL ratio 3.1 <5.0 (calc) Renetta KitesMarcellus santosh Tran Non-HDL, (LDL+VLDL) 85 <130 mg/dL (calc) SmartererMarcellus santosh Tran Comment: For patients with diabetes plus 1 major ASCVD risk factor, treating to a non-HDL-C goal of <100 mg/dL (LDL-C of <70 mg/dL) is considered a therapeutic option. Blood 04/28/2024 7:39 AM C ENGINEER 04/28/2024 7:39 AM C ENGINEER Narrative [facility] - 04/29/2024 4:20 AM C ENGINEER FASTING:YES FASTING: YES us Carmen DAVE LAB BLOOD ORDERABLES Final Result [facility] [address] [place] [address] * (ABNORMAL) Comprehensive metabolic panel (04/28/2024 7:39 AM C ENGINEER) Glucose 101(H) 65 - 99 mg/dL Renetta YuanVLindaMarcellus santosh Tran Comment: Fasting reference interval For someone without known diabetes, a glucose value between 100 and 125 mg/dL is consistent with prediabetes and should be confirmed with a follow-up test. BUN 15 7 - 25 mg/dL Renetta KitesMarcellus Tran Creatinine 0.91 0.70 - 1.30 mg/dL Renetta YuanV-Marcellus Tran eGFR 102 > OR = 60 mL/min/1.7 3m2 Renetta Cohn-Marcellus Tran BUN/creat ratio SEE NOTE: 6 - 22 (calc) Renetta YuanV-Marcellus Tran Comment: Not Reported: BUN and Creatinine are within reference range. Sodium 138 135 - 146 mmol/L Renetta Cohn-Marcellus Tran Potassium, pl 4.4 3.5 - 5.3 mmol/L Renetta Cohn-Marcellus Tran Chloride 102 98 - 110 mmol/L Renetta Cohn-Marcellus Tran CO2 29 20 - 32 mmol/L Renetta Cohn-Marcellus Tran Calcium 9.4 8.6 - 10.3 mg/dL Renetta Cohn-Marcellus Tran Protein, sr 7.0 6.1 - 8.1 g/dL Renetta Cohn-Marcellus Tran Albumin 4.9 3.6 - 5.1 g/dL Renetta YuanV-Marcellus Tran GLOBULIN 2.1 1.9 - 3.7 g/dL (calc) Renetta YuanV-Marcellus Tran Alb/glob ratio 2.3 1.0 - 2.5 (calc) Renetta YuanV-Marcellus Tran Bilirubin, total 0.6 0.2 - 1.2 mg/dL Renetta YuanV-Marcellus Tarn Alk phos 82 35 - 144 U/L Renetta Cohn-Marcellus Tran AST 16 10 - 35 U/L Renetta Cohn-Marcellus Tran ALT (SGPT) 17 9 - 46 U/L Renetta KitesMarcellus Tran Blood 04/28/2024 7:39 AM C ENGINEER 04/28/2024 7:39 AM C ENGINEER Narrative [facility] - 04/29/2024 4:20 AM C ENGINEER FASTING:YES FASTING: YES Carmen DAVE LAB BLOOD ORDERABLES Final Result RENETTA Tran [address] [place] [address] * Diabetic Eye Exam (08/27/2023 10:45 AM CDT) Historical Provider HEALTH MAINTENANCE Edited Result - Final * PSA screen (05/06/2023 8:23 AM CDT) PSA 1.08 < OR = 4.00 ng/mL [facility] Comment: The total PSA value from this assay system is standardized against the WHO standard. The test result will be approximately 20% lower when compared to the equimolar-standardized total PSA (Alphonso Vidalia). Comparison of serial PSA results should be interpreted with this fact in mind. This test was performed using the Siemens chemiluminescent method. Values obtained from different assay methods cannot be used interchangeably. PSA levels, regardless of value, should not be interpreted as absolute evidence of the presence or absence of disease. 05/06/2023 8:23 AM CDT 05/06/2023 8:24 AM CDT Narrative [facility] - 05/07/2023 4:35 AM CDT FASTING:YES FASTING: YES Haley Arguello NP LAB BLOOD ORDERABLES Final Re sult [facility] [address] [place] [address] from Last 3 Months or Most Recently Relevant to Health Maintenance Insurance [employer] Advance Directives For more information, please contact: [phone] * Full Code (Latest Code Status on File) Date Activated Date Inactivated Comments 10/17/2023 11:53 AM 10/18/2023 4:10 PM * Full Code Date Activated Date Inactivated Comments 01/03/2023 9:36 PM 01/05/2023 8:18 PM Care Teams Service Support Representative Relationship Specialty Start Date End Date Haley Arguello NP [address] [address] PCP - General Internal Medicine 11/08/22 Shital De Oliveira MD [address] [place] [address] [address] [place] [phone] (work) Consulting Physician Internal Medicine 02/20/23
[2024-09-16 09:20] LABS: Hematocrit 48.1 % (42.0-52.0); Hemoglobin 17.1 g/dL (14.0-18.0); Immature Granulocyte Percent A 0.7 % (0-0.5); Lymphocytes Absolute Auto 1.55 K/mm3 (0.9-3.2); Mean Corpuscular HGB Conc 35.6 g/dl (32-36); Mean Corpuscular Hemoglobin 32.2 pg (26-34); Mean Corpuscular Volume 90.6 fl (80-100); Nucleated Red Blood Cells Absolute Auto 0.000 K/mm3 (0.0-0.012); Nucleated Red Blood Cells Perc 0.0 % (0.0-0.2); Platelet Count Result 198 k/mm3 (150-375); Red Blood Count 5.31 M/mm3 (4.6-6.20); White Blood Count 7.0 K/mm3 (4.5-10.0)
--- OUTSIDE RECORDS SUMMARY | 2024-09-16 09:20 | XMS_ITS ---
Author Organization Unknown Plan of Treatment Description Planned Activity Planned Timing [facility] is a provider organization who partners directly with Health Plans and provides integrated primary care, behavioral health, and social work manager for an attributed population Letter encounter to patientTelephone encounter Aug 20, 2024Jul 2024 Patient Care team information Name Category Status Period Participants - - Proposed period not known - - - Proposed period not known -
--- OUTSIDE RECORDS SUMMARY | 2024-09-16 09:20 | XMS_ITS | Clinical Summary ---
Author Organization [facility] Address [address] [place] [address] Care Team Providers Care Manager Cardiovascular Name Role Phone Shital De Oliveira MD Primary Care Provider [phone] Allergies No known active allergies Medications atorvastatin (LIPITOR) 20 mg tablet TAKE 1 TABLET BY MOUTH EVERY OTHER DAY AT BEDTIME 2 Active OneTouch Verio test strips Strip TEST TWICE DAILY DIRECTED 2 Active Farxiga 10 mg Tablet Take 10 mg by mouth daily in the morning. 2 Active ergocalciferol (VITAMIN D2) 50,000 unit capsule 2 Active OneTouch Delica Plus Lancet 33 gauge TEST TWICE DAILY 2 Active levothyroxine 50 mcg tablet Take 50 mcg by mouth daily in the morning. 2 Active metFORMIN (GLUCOPHAGE) 500 mg tablet TAKE 1 TABLET BY MOUTH TWICE DAILY BEFORE MEALS 2 Active lidocaine PF 0.5 % (XYLOCAINE MPF) Solution 30 mg. Active HYDROcodone-flaca taminophen (NORCO) 5-325 mg tablet Take 1 Tablet by mouth daily at bedtime. 4 Active Ozempic 0.25 mg or 0.5 mg (2 mg/3 mL) Pen Injector Inject 0.5 mg by subcutaneous injection every 7 days. 4 Active Active Problems Problem Noted Date Diagnosed Date Erythrocytosis 09/07/2021 Hereditary hemochromatosis 09/07/2021 Encounters Date Type Department Care Team Description 07/28/2024 External Device Data [facility] ABSTRACTION Provider, Abstract 07/15/2024 External Device Data [facility] ABSTRACTION Provider, Abstract 07/14/2024 External Device Data [facility] ABSTRACTION Provider, Abstract from Last 3 Months Family History Medical History Relation Name Comments Cancer Father Diabetes Mother Relation Name Status Comments Father Mother Alive Sister Alive Social History Tobacco Use Types Packs/Day Years Used Date Smoking Tobacco: Former Cigarettes 1 25 1 04/01/1996 - 01/29/2022 Smokeless Tobacco: Never Alcohol Use Standard Drinks/Week Comments Never 0 (1 standard drink = 0.6 oz pur e alcohol) Sex and Gender Information Value Date Recorded Sex Assigned at Male 09/18/2022 8:39 PM CDT Legal Sex Male 4:09 PM CDT Gender Identity Male 09/18/2022 8:39 PM CDT Sexual Orientation Straight 09/18/2022 8: 39 PM CDT Last Filed Vital Signs Vital Sign Reading Time Taken Comments Blood Pressure 118/73 03/23/2024 1:07 PM [employer] Pulse 72 03/23/2024 1:07 PM [employer] Temperature 36 C (96.8 F) 03/23/2024 1:07 PM [employer] Respiratory Rate 16 03/23/2024 1:07 PM [employer] Oxygen Saturation 97% 03/23/2024 1:07 PM [employer] Inhaled Oxygen Concentration - - Weight 122.8 kg (270 lb 12.8 oz) 03/23/2024 1:07 PM [employer] Height 190.5 cm (6' 3) 09/07/2021 11:1 7 AM CDT Body Mass Index 33.85 09/07/2021 11:17 AM CDT Plan of Treatment Upcoming Encounters Date Type Department Care Team (Late st Contact Info) Description 09/21/2024 11:00 AM CDT Office Visit [facility] Oncology and H[facility]ology - [place] [address] [facility] [address] [place] [address] Mike Farr MD [address] [place] [address] Health Maintenance Due Date Last Done Comments DIABETES ANNUAL FOOT EXAM 1990 DIABETES ANNUAL RETINAL EXAM 1990 DIABETES MICROALBUMIN ANNUAL SCREEN 1990 LDL CHOLESTEROL ANNUAL 1990 HEPATITIS B VACCINES (1 of 3 - 19+ 3-dose series) 08/03/1991 COLORECTAL SCREENING 2017 Colorectal Cancer Screening 2017 FIT-DNA Q 3 years 2017 FIT/FOBT Q 1 year 2017 Flex Sig/CT Colonography Q 5 years 2017 Lung Cancer Screening 2022 ZOSTER VACCINE (1 of 2) 2022 DIABETES HBA1C Q 6 MONTHS 04/08/20242023, 05/06/2023, 11/23/2022 INFLUENZA VACCINE (#1) 2024 DTAP/TDAP/TD VACCINES (2 - T d or Tdap) 08/01/2031 07/31/2021 Abdominal Aortic Aneurysm (A AA) Screening Completed 07/11/2021 Insurance Care Teams Manager Cardiovascular Relationship Specialty Start Date End Date Shital De Oliveira MD [address] [place] [id number] PCP - General Internal Medicine 10/03/22
--- OUTSIDE RECORDS SUMMARY | 2024-09-16 09:20 | XMS_ITS | Data Portability ---
Author Organization [facility] [employer], Main Office Address [address] [place] [address] Care Team Providers Care Cleaner Operator Name Role Phone AIDEE DO Primary Care Provider AIDEE DO Referring Provider [phone] TAHIR FAITH Primary Care Provider Assessment No assessment recorded. Plan of Treatment Reminders Order Date Submit Date Provider Last Modified By Organization Details Last Modified Time Details Appointments None recorded. Lab CMP, serum or plasma 2022 023 [id number] [facility], [address] [facility], [place], [address], 3 11:13:14 microalbumi n/creatinin e, mass ratio, urine 2022 023 [id number] [facility], [address] [facility], [place], [address], 3 11:13:14 HbA1c (hemoglobin A1c), blood 2022 023 [facility], [address] [facility], [place], [address], 3 11:13:14 lipid panel, serum 2022 023 [place] [facility], [address] [facility], [place], [address], 3 13:30:35 T3, free, serum or plasma 2022 023 [facility], [address] [facility], [place], [address], 3 11:13:14 TSH, serum or plasma 2022 023 [id number] [facility], [address] [facility], [place], [address], 3 11:13:14 T4, free, serum 2022 023 [id number] [facility], [address], [place], [address], 3 11:13:15 Referral None recorded. Procedures None recorded. Surgeries None recorded. Imaging None recorded. Medication Orders metformin 500 mg tablet 2022 023 [facility]45338, [address] [facility], [place], [place], [id number], 3 09:04:42 Trulicity 1.5 mg/0.5 mL subcutaneou s pen injector 2022 023 [facility] #34682, [address] [facility], [place], [place], [id number], 3 09:04:39 Farxiga 10 mg tablet 2022 023 [facility] #11863, [address] [facility], [place], [place], [id number], 3 09:04:39 OneTouch Ultra Test strips 2022 023 [facility] #45180, [address] [facility], [place], [place], [id number], 3 09:06:38 atorvastati n 20 mg tablet 2022 023 [facility] #04959, [address] [facility], [place], [place], [id number], 3 09:05:26 Unithroid 75 mcg tablet 2022 023 [place] [facility]58035, [address], [place], [place], [id number], 3 09:05:25 Farxiga 10 mg tablet 2022 023 [place] [facility]39499, [address], [place], [place], [id number], 3 16:03:19 Unithroid 50 mcg tablet 2022 023 [place] [facility] #49621, [address], [place], [place], [id number], 3 16:03:19 Patient TargetsNo targets recorded. Patient InstructionsNo instructions recorded. Reason for Referral None Reported. Results Created Date Observation Date Name Description Value Unit Range Abnormal Flag Note LastModifiedBy Organization Detail LastModifiedTime 09/05/19 22 09/11/2021 HEMOG LOBIN A1C hemoglobin A1C 5.4 %_of_ total _HGB <5.7 normal For the purpo se of zackary dee for the prese nce of diabe chely: <5.7% Consi stent with the absen ce of diabe chely 5.7-6 .4% Consi stent with incre ased risk for diabe chely (pred iabet es) > or =6.5% Consi stent with diabe chely This assay resul t is consi stent with a decre ased risk of diabe chely. Curre ntly, no conse nsus exist s ferny vang use of hemog lobin A1c for diagn osis of diabe chely in child greer. Accor ding to Ameri can Diabe cehly Assoc iatio n (ADA) guide lines , hemog lobin A1c <7.0% repre sents optim al contr ol in non-p regna nt diabe tic patie nts. Diffe rent metri cs may apply to speci fic patie nt popul ation s. [facility] ards of Medic al Care in Diabe chely(A DA). Not Available [facility] [address] [place], [address], 09/11/2021 13:39:22 09/05/19 22 09/11/2021 TSH+F REE T4 TSH 6.98 mIU/L high Refer ence Range > or = 20 Years 0.40- 4.50 Pregn brenda Range s First trime ster 0.26- 2.66 Secon d trime ster 0.55- 2.73 Third trime ster 0.43- 2.91 Not Available [address], [address], 09/11/2021 13:39:21 09/05/19 22 09/11/2021 TSH+F REE T4 T4, free 1.2 NG/dL 0.8-1. 8 normal Not Available [address], [address], 09/11/2021 13:39:21 09/05/19 22 09/11/2021 T3, FREE T3, free 3.0 pg/mL 2.3-4. 2 normal Not Available [address], [address], 09/11/2021 13:39:21 09/05/19 22 09/11/2021 JENNIFER TIN ferritin 45 NG/mL 16-232 normal Not Available [address], [address], 09/11/2021 13:39:20 09/05/19 22 09/11/2021 ERYTH ROPOI ETIN erythropoiet in 18.0 mIU/m L 2.6-18 .5 normal Not Available [address], [address], 09/11/2021 13:39:20 09/05/19 22 09/11/2021 HERED ITARY HEMOC HROMA TOSIS DNA MUT hereditary hemochromato sis DNA mut see below RESUL T: HETER OZYGO US FOR THE C282Y AND H63D PATHO GENIC VARIA NTS Inter preta tion: One copy each of the C282Y and H63D patho genic varia nts in HFE gene was detec nohemi. Appro ximat speedy 3%-8% of indiv idual s with a bioch emica l diagn osis of hered itary hemoc hroma tosis (HH) have this genot ype. There fore, this resul t is consi stent with a diagn osis of HH in an indiv idual with clini dylon evide nce of HH. Howev er, this genot ype does not predi ct a diagn osis of HH in an asymp tomat ic indiv idual , as only 0.5% to 2% of indiv idual s with this genot ype will devel op sympt oms or clini dylon evide nce of this disor nilsa. Disea se diagn osis can only be made by demon juno ion of eleva nohemi iron store s. Neil ic couns eling is recom saira d to discu ss the poten tial clini dylon impli catio ns of this resul t. Labor atory resul ts revie wed and relea sed by quali fied perso nnel. DETAI LED ASSAY INFOR MATIO N: Hered itary hemoc hroma tosis (HH) is an autos omal reces sive disor nilsa of iron metab olism that can resul t in iron overl oad and poten tial organ failu re. It is one of the most commo n neil ic disor ders in indiv idual s of Europ rigoberto-C aucas mert ances try, with an estim ated babar er frequ ency of 10%. HH is cause d by patho genic varia nts in the HFE gene. Most indiv idual s with HH (60-9 0%) are homoz ygous for the C282Y patho genic varia nt. A small er perce ntage of affec nohemi indiv idual s are eithe r compo und heter ozygo us for the C282Y and H63D patho genic varia nts (3%-8 %), or homoz ygous for the H63D patho genic varia nt (appr oxima tely 1%). METHO DOLOG Y: This assay detec ts two patho genic varia nts in the HFE gene, C282Y ([place] [address] 0.2: c.845 G>A, p.Cys 282Ty r) and H63D ([place] [address] 0.2: c.187 C>G, p.His 63Asp ), that are commo nly assoc iated with HH. These varia nts are detec nohemi by multi plex- polym erase chain react ion (PCR) ampli ficat ion, follo wed by restr ictio n enzym e diges tion and denzel arias elect ropho resis . LIMIT ATION S: This assay does not detec t other patho genic varia nts in the HFE gene that may be assoc iated with HH. Altho ugh rare, false posit ajay or false negat ajay resul ts may occur . All resul ts shoul d be inter prete d in the ciara xt of clini dylon findi ngs, relev ant histo ry, and other labor atory data. Healt h care provi dercurt, camille e conta ct your local [facility] neil ic couns elor or call -GENE INFO ( [phone] ) for gerardo tance with the inter preta tion of these resul ts. This test was devel oped and its priyanka tical perfo rmanc e leidy cteri stics have been deter mined by [facility] [employer] [employer] . It has not been clear ed or appro chaz by FDA. This assay has been valid ated pursu ant to the CLIA regul ation s and is used for clini dylon purpo ses. For more infor camille sahu e refer to http: //[facility] catannita n.que stdia gnost ics.c om/fa q/hem ochro renae is. (This link is being provi ded for infor matannita nal/e ducat ional purpo ses only. ) Revie wed and stacy d by Julianne chavira, Ph.D. , FACMG , HCLD, CGMB, Stacy d on 09/11 at 10:17 Not Available [address], [address], 09/11/2021 13:39:20 09/05/19 22 09/11/2021 CBC (INCL UDES DIFF/ PLT) white blood cell count 9.4 thous and/u L 3.8-10 .8 normal Not Available [address], [address], 09/11/2021 13:39:19 09/05/19 22 09/11/2021 CBC (INCL UDES DIFF/ PLT) red blood cell count 5.57 etienne on/uL 3.80-5 .10 high Not Available [address], [address], 09/11/2021 13:39:19 09/05/19 22 09/11/2021 CBC (INCL UDES DIFF/ PLT) hemoglobin 17.0 g/dL 11.7-1 5.5 high Not Available [address], [address], 09/11/2021 13:39:19 09/05/19 22 09/11/2021 CBC (INCL UDES DIFF/ PLT) hematocrit 51.9 % 35.0-4 5.0 high Not Available [address], [address], 09/11/2021 13:39:19 09/05/19 22 09/11/2021 CBC (INCL UDES DIFF/ PLT) MCV 93.2 fL 80.0-1 00.0 normal Not Available [address], [address], 09/11/2021 13:39:19 09/05/19 22 09/11/2021 CBC (INCL UDES DIFF/ PLT) MCH 30.5 pg 27.0-3 3.0 normal Not Available [address], [address], 09/11/2021 13:39:19 09/05/19 22 09/11/2021 CBC (INCL UDES DIFF/ PLT) MCHC 32.8 g/dL 32.0-3 6.0 normal Not Available [address], [address], 09/11/2021 13:39:19 09/05/19 22 09/11/2021 CBC (INCL UDES DIFF/ PLT) RDW 13.4 % 11.0-1 5.0 normal Not Available [address], [address], 09/11/2021 13:39:19 09/05/19 22 09/11/2021 CBC (INCL UDES DIFF/ PLT) platelet count 219 thous and/u L 140-40 0 normal Not Available [address], [address], 09/11/2021 13:39:19 09/05/19 22 09/11/2021 CBC (INCL UDES DIFF/ PLT) MPV 11.0 fL 7.5-12 .5 normal Not Available [address], [address], 09/11/2021 13:39:19 09/05/19 22 09/11/2021 CBC (INCL UDES DIFF/ PLT) absolute neutrophils 6984 cells /uL 1500-7 800 normal Not Available [address], [address], 09/11/2021 13:39:19 09/05/19 22 09/11/2021 CBC (INCL UDES DIFF/ PLT) absolute lymphocytes 1335 cells /uL 850-39 00 normal Not Available [address], [address], 09/11/2021 13:39:19 09/05/19 22 09/11/2021 CBC (INCL UDES DIFF/ PLT) absolute monocytes 686 cells /uL 200-95 0 normal Not Available [address], [address], 09/11/2021 13:39:19 09/05/19 22 09/11/2021 CBC (INCL UDES DIFF/ PLT) absolute eosinophils 338 cells /uL 15-500 normal Not Available [address], [address], 09/11/2021 13:39:19 09/05/19 22 09/11/2021 CBC (INCL UDES DIFF/ PLT) absolute basophils 56 cells /uL 0-200 normal Not Available [address], [address], 09/11/2021 13:39:19 09/05/19 22 09/11/2021 CBC (INCL UDES DIFF/ PLT) neutrophils 74.3 % normal Not Available [address], [address], 09/11/2021 13:39:19 09/05/19 22 09/11/2021 CBC (INCL UDES DIFF/ PLT) lymphocytes 14.2 % normal Not Available [address], [address], 09/11/2021 13:39:19 09/05/19 22 09/11/2021 CBC (INCL UDES DIFF/ PLT) monocytes 7.3 % normal Not Available [address], [address], 09/11/2021 13:39:19 09/05/19 22 09/11/2021 CBC (INCL UDES DIFF/ PLT) eosinophils 3.6 % normal Not Available [address], [address], 09/11/2021 13:39:19 09/05/19 22 09/11/2021 CBC (INCL UDES DIFF/ PLT) basophils 0.6 % normal Not Available [facility] [address] [place], [address], 09/11/2021 13:39:19 09/05/19 22 09/11/2021 ALBUM IN, RANDO M URINE W/CRE ATINI NE creatinine, random urine 64 mg/dL 20-275 normal Not Available [facility] [address] [place], [address], 09/11/2021 13:39:19 09/05/19 22 09/11/2021 ALBUM IN, RANDO M URINE W/CRE ATINI NE albumin, urine 0.4 mg/dL see note: normal Refer ence Range : Refer ence Range Not estab lishe d Not Available [address] [address] [place], [address], 09/11/2021 13:39:19 09/05/19 22 09/11/2021 ALBUM IN, RANDO M URINE W/CRE ATINI NE albumin/crea tinine ratio, random urine 6 mcg/m g_cre at <30 normal The ADA defin es abnor malit ies in album in excre tion as follo ws: Album inuri a Categ ory Resul t (mcg/ mg creat inine ) Trena l to Mildl y incre ased <30 Moder ately incre ased 30-29 9 Sever speedy incre ased > OR = 300 The ADA recom mends that at least two of three speci mens colle cted withi n a 3-6 month perio d be abnor mal befor e consi dipika g a patie nt to be withi n a diagn ostic categ ory. Not Available [address] [address] [place], [address], 09/11/2021 13:39:19 09/05/19 22 09/11/2021 COMPR EHENS AJAY METAB OLIC PANEL albumin 4.6 g/dL 3.6-5. 1 normal Not Available [address] [address] [place], [address], 09/11/2021 13:39:18 09/05/19 22 09/11/2021 COMPR EHENS AJAY METAB OLIC PANEL carbon dioxide 26 mmol/ L 20-32 normal Not Available [address], [address], 09/11/2021 13:39:18 09/05/19 22 09/11/2021 COMPR EHENS AJAY METAB OLIC PANEL calcium 9.4 mg/dL 8.6-10 .2 normal Not Available [address], [address], 09/11/2021 13:39:18 09/05/19 22 09/11/2021 COMPR EHENS AJAY METAB OLIC PANEL protein, total 6.6 g/dL 6.1-8. 1 normal Not Available [address], [address], 09/11/2021 13:39:18 09/05/19 22 09/11/2021 COMPR EHENS AJAY METAB OLIC PANEL globulin 2.0 g/dL_ (calc ) 1.9-3. 7 normal Not Available [address], [address], 09/11/2021 13:39:18 09/05/19 22 09/11/2021 COMPR EHENS AJAY METAB OLIC PANEL albumin/glob ulin ratio 2.3 (calc ) 1.0-2. 5 normal Not Available [address], [address], 09/11/2021 13:39:18 09/05/19 22 09/11/2021 COMPR EHENS AJAY METAB OLIC PANEL bilirubin, total 0.4 mg/dL 0.2-1. 2 normal Not Available [address], [address], 09/11/2021 13:39:18 09/05/19 22 09/11/2021 COMPR EHENS AJAY METAB OLIC PANEL alkaline phosphatase 74 U/L 31-125 normal Not Available [facility] [employer] [address], [address], 09/11/2021 13:39:18 09/05/19 22 09/11/2021 COMPR EHENS AJAY METAB OLIC PANEL AST 12 U/L 10-35 normal Not Available [address], [address], 09/11/2021 13:39:18 09/05/19 22 09/11/2021 COMPR EHENS AJAY METAB OLIC PANEL ALT 15 U/L 6-29 normal Not Available [address], [address], 09/11/2021 13:39:18 09/05/19 22 09/11/2021 COMPR EHENS AJAY METAB OLIC PANEL glucose 94 mg/dL 65-99 normal Fasti ng refer ence inter paulina Not Available [address], [address], 09/11/2021 13:39:18 09/05/19 22 09/11/2021 COMPR EHENS AJAY METAB OLIC PANEL urea nitrogen (BUN) 15 mg/dL 7-25 normal Not Available [address], [address], 09/11/2021 13:39:18 09/05/19 22 09/11/2021 COMPR EHENS AJAY METAB OLIC PANEL creatinine 0.90 mg/dL 0.50-0 .99 normal Not Available [address], [address], 09/11/2021 13:39:18 09/05/19 22 09/11/2021 COMPR EHENS AJAY METAB OLIC PANEL eGFR 78 mL/mi n/1.7 3m2 > or = 60 normal The eGFR is based on the CKD-E PI 2020 equat ion. To calcu late the new eGFR from a previ ous Creat inine or Cysta tin C resul t, go to https :[email or web address] [email or web address] suazo s/ kdoqi /gfr% 5Fcal culat or Not Available [address] [address] [place], [address], 09/11/2021 13:39:18 09/05/19 22 09/11/2021 COMPR EHENS AJAY METAB OLIC PANEL BUN/creatini ne ratio not applic able (calc ) 6-22 Not Available [address], [address], 09/11/2021 13:39:18 09/05/19 22 09/11/2021 COMPR EHENS AJAY METAB OLIC PANEL sodium 139 mmol/ L 135-14 6 normal Not Available [address], [address], 09/11/2021 13:39:18 09/05/19 22 09/11/2021 COMPR EHENS AJAY METAB OLIC PANEL potassium 4.4 mmol/ L 3.5-5. 3 normal Not Available [address], [address], 09/11/2021 13:39:18 09/05/19 22 09/11/2021 COMPR EHENS AJAY METAB OLIC PANEL chloride 106 mmol/ L 98-110 normal Not Available [address], [address], 09/11/2021 13:39:18 09/05/19 22 09/11/2021 IRON AND TOTAL IRON AMALIA NG CAPAC ITY iron, total 66 mcg/d L 40-190 normal Not Available [address], [address], 09/11/2021 13:39:18 09/05/19 22 09/11/2021 IRON AND TOTAL IRON AMALIA NG CAPAC ITY iron binding capacity 318 mcg/d L_(ca lc) 250-45 0 normal Not Available [address], [address], 09/11/2021 13:39:18 09/05/19 22 09/11/2021 IRON AND TOTAL IRON AMALIA NG CAPAC ITY % saturation 21 %_(ca lc) 16-45 normal Not Available [address], [address], 09/11/2021 13:39:18 09/05/19 22 09/11/2021 LIPID PANEL , STAND DANNI chol/HDLC ratio 3.5 (calc ) <5.0 normal Not Available [address], [address], 09/11/2021 13:39:17 09/05/19 22 09/11/2021 LIPID PANEL , STAND DANNI cholesterol, total 118 mg/dL <200 normal Not Available [address], [address], 09/11/2021 13:39:17 09/05/19 22 09/11/2021 LIPID PANEL , STAND DANNI HDL cholesterol 34 mg/dL > or = 50 low Not Available [address], [address], 09/11/2021 13:39:17 09/05/19 22 09/11/2021 LIPID PANEL , STAND DANNI triglyceride s 172 mg/dL <150 high Not Available [address], [address], 09/11/2021 13:39:17 09/05/19 22 09/11/2021 LIPID PANEL , STAND DANNI LDL-choleste rol 59 mg/dL _(dylon c) normal Refer ence range : <100 Nuris able range <100 mg/dL for prima ry preve ntion ; <70 mg/dL for patie nts with CHD or diabe tic patie nts with > or = 2 CHD risk facto rs. LDL-C is now calcu lated using the Tere n-Hop kins calcu latannita n, which is a valid ated novel metho d eleno vang shahnaz r accur acy than the Fried jono equat ion in the estim ation of LDL-C . Tere robles SS et al. SAJI. 2013; 310(1 9): 2061- 2068 (http ://ed ucati on.Qu estDi Building Successful Teens. com/f aq/FA Q164) Not Available [facility] [address] [place], [address], 09/11/2021 13:39:17 09/05/1909/11/2021 LIPID PANEL , STAND DANNI non HDL cholesterol 84 mg/dL _(dylon c) <130 normal For patie nts with diabe chely plus 1 major ASCVD risk facto r, treat ing to a non-H DL-C goal of <100 mg/dL (LDL- C of <70 mg/dL ) is consi dered a thera peuti c optio n. Not Available [facility] [address] [address], [place], [address], 09/11/2021 13:39:17 03/08/19 23 03/09/2022 HEMOG LOBIN A1C hemoglobin A1C 5.2 %_of_ total _HGB <5.7 normal For the purpo se of zackary dee for the prese nce of diabe chely: <5.7% Consi stent with the absen ce of diabe chely 5.7-6 .4% Consi stent with incre ased risk for diabe chely (pred iabet es) > or =6.5% Consi stent with diabe chely This assay resul t is consi stent with a decre ased risk of diabe chely. Curre ntly, no conse nsus exist s ferny vang use of hemog lobin A1c for diagn osis of diabe chely in child greer. Accor ding to Ameri can Diabe chely Assoc iatio n (ADA) guide lines , hemog lobin A1c <7.0% repre sents optim al contr ol in non-p regna nt diabe tic patie nts. Diffe rent metri cs may apply to speci fic patie nt popul ation s. Stand ards of Medic al Care in Diabe chely(A DA). Not Available [address] [address] [place], [address], 03/09/2022 20:22:48 03/08/19 23 03/09/2022 TSH+F REE T4 TSH 3.80 mIU/L normal Refer ence Range > or = 20 Years 0.40- 4.50 Pregn brenda Range s First trime ster 0.26- 2.66 Secon d trime ster 0.55- 2.73 Third trime ster 0.43- 2.91 Not Available [address] [address] [place], [address], 03/09/2022 20:22:48 03/08/19 23 03/09/2022 TSH+F REE T4 T4, free 1.1 NG/dL 0.8-1. 8 normal Not Available [address] [address] [place], [address], 03/09/2022 20:22:48 03/08/19 23 03/09/2022 T3, FREE T3, free 3.4 pg/mL 2.3-4. 2 normal Not Available [address] [place], [address], 03/09/2022 20:22:47 03/08/19 23 03/09/2022 THYRO ID PEROX IDASE ANTIB ODIES thyroid peroxidase antibodies >900 IU/mL <9 high Not Available [address] [address] [place], [address], 03/09/2022 20:22:47 03/08/19 23 03/09/2022 ALBUM IN, RANDO M URINE W/CRE ATINI NE creatinine, random urine 21 mg/dL 20-275 normal Not Available [address] [address] [place], [address], 03/09/2022 20:22:46 03/08/19 23 03/09/2022 ALBUM IN, RANDO M URINE W/CRE ATINI NE albumin, urine <0.2 mg/dL see note: normal Refer ence Range : Refer ence Range Not estab lishe d Not Available [address], [address], 03/09/2022 20:22:46 03/08/19 23 03/09/2022 ALBUM IN, RANDO M URINE W/CRE ATINI NE albumin/crea tinine ratio, random urine note mcg/m g_cre at <30 normal NOTE: The urine album in value is less than 0.2 mg/dL there fore we are unabl e to calcu late excre tion and/o r creat inine ratio . The ADA defin es abnor malit ies in album in excre tion as follo ws: Album inuri a Categ ory Resul t (mcg/ mg creat inine ) Trena l to Mildl y incre ased <30 Moder ately incre ased 30-29 9 Sever speedy incre ased > OR = 300 The ADA recom mends that at least two of three speci mens colle cted withi n a 3-6 month perio d be abnor mal befor e consi dipika g a patie nt to be withi n a diagn ostic categ ory. Not Available [address], [address], 03/09/2022 20:22:46 03/08/19 23 03/09/2022 COMPR EHENS AJAY METAB OLIC PANEL glucose 98 mg/dL 65-99 normal Fasti ng refer ence inter paulina Not Available [address], [address], 03/09/2022 20:22:46 03/08/19 23 03/09/2022 COMPR EHENS AJAY METAB OLIC PANEL urea nitrogen (BUN) 21 mg/dL 7-25 normal Not Available [address] [place], [address], 03/09/2022 20:22:46 03/08/19 23 03/09/2022 COMPR EHENS AJAY METAB OLIC PANEL creatinine 0.87 mg/dL 0.50-0 .99 normal Not Available [address], [address], 03/09/2022 20:22:46 03/08/19 23 03/09/2022 COMPR EHENS AJAY METAB OLIC PANEL eGFR 82 mL/mi n/1.7 3m2 > or = 60 normal The eGFR is based on the CKD-E PI 2020 equat ion. To calcu late the new eGFR from a previ ous Creat inine or Cysta tin C resul t, go to https :[email or web address] [email or web address] suazo s/ kdoqi /gfr% 5Fcal culat or Not Available [address], [address], 03/09/2022 20:22:46 03/08/19 23 03/09/2022 COMPR EHENS AJAY METAB OLIC PANEL BUN/creatini ne ratio not applic able (calc ) 6-22 Not Available [address], [address], 03/09/2022 20:22:46 03/08/19 23 03/09/2022 COMPR EHENS AJAY METAB OLIC PANEL sodium 139 mmol/ L 135-14 6 normal Not Available [address], [address], 03/09/2022 20:22:46 03/08/19 23 03/09/2022 COMPR EHENS AJAY METAB OLIC PANEL potassium 4.7 mmol/ L 3.5-5. 3 normal Not Available [address], [address], 03/09/2022 20:22:46 03/08/19 23 03/09/2022 COMPR EHENS AJAY METAB OLIC PANEL chloride 107 mmol/ L 98-110 normal Not Available [address], [address], 03/09/2022 20:22:46 03/08/19 23 03/09/2022 COMPR EHENS AJAY METAB OLIC PANEL carbon dioxide 28 mmol/ L 20-32 normal Not Available [address], [address], 03/09/2022 20:22:46 03/08/19 23 03/09/2022 COMPR EHENS AJAY METAB OLIC PANEL calcium 8.8 mg/dL 8.6-10 .2 normal Not Available [address], [address], 03/09/2022 20:22:46 03/08/19 23 03/09/2022 COMPR EHENS AJAY METAB OLIC PANEL protein, total 6.4 g/dL 6.1-8. 1 normal Not Available [address], [address], 03/09/2022 20:22:46 03/08/19 23 03/09/2022 COMPR EHENS AJAY METAB OLIC PANEL albumin 4.4 g/dL 3.6-5. 1 normal Not Available [address], [address], 03/09/2022 20:22:46 03/08/19 23 03/09/2022 COMPR EHENS AJAY METAB OLIC PANEL globulin 2.0 g/dL_ (calc ) 1.9-3. 7 normal Not Available [address], [address], 03/09/2022 20:22:46 03/08/19 23 03/09/2022 COMPR EHENS AJAY METAB OLIC PANEL albumin/glob ulin ratio 2.2 (calc ) 1.0-2. 5 normal Not Available [address], [address], 03/09/2022 20:22:46 03/08/19 23 03/09/2022 COMPR EHENS AJAY METAB OLIC PANEL bilirubin, total 0.4 mg/dL 0.2-1. 2 normal Not Available [address], [address], 03/09/2022 20:22:46 03/08/19 23 03/09/2022 COMPR EHENS AJAY METAB OLIC PANEL alkaline phosphatase 68 U/L 31-125 normal Not Available [address], [id number], 03/09/2022 20:22:46 03/08/19 23 03/09/2022 COMPR EHENS AJAY METAB OLIC PANEL AST 14 U/L 10-35 normal Not Available [address], [address], 03/09/2022 20:22:46 03/08/19 23 03/09/2022 COMPR EHENS AJAY METAB OLIC PANEL ALT 17 U/L 6-29 normal Not Available [address], [id number], 03/09/2022 20:22:46 03/08/19 23 03/09/2022 LIPID PANEL , STAND DANNI cholesterol, total 125 mg/dL <200 normal Not Available [address], [address], 03/09/2022 20:22:45 03/08/19 23 03/09/2022 LIPID PANEL , STAND DANNI HDL cholesterol 37 mg/dL > or = 50 low Not Available [address], [address], 03/09/2022 20:22:45 03/08/19 23 03/09/2022 LIPID PANEL , STAND DANNI triglyceride s 152 mg/dL <150 high Not Available [facility] [address] [place], [address], 03/09/2022 20:22:45 03/08/19 23 03/09/2022 LIPID PANEL , STAND DANNI LDL-choleste rol 65 mg/dL _(dylon c) normal Refer ence range : <100 Nuris able range <100 mg/dL for prima ry preve ntion ; <70 mg/dL for patie nts with CHD or diabe tic patie nts with > or = 2 CHD risk facto rs. LDL-C is now calcu lated using the Tere n-Hop kins calcu suzan n, which is a valid ated novel jose luiso yanira charles accur acy than the Fried jono equat ion in the estim ation of LDL-C . Tere robles SS et al. SAJI. 2013; 310(1 9): 2061- 2068 (http ://ed ucati on.[employer]. sones/f aq/FA Q164) Not Available [facility] [address], [place], [address], 03/09/2022 20:22:45 03/08/19 23 03/09/2022 LIPID PANEL , STAND DANNI chol/HDLC ratio 3.4 (calc ) <5.0 normal Not Available [facility] [address] [place], [address], 03/09/2022 20:22:45 03/08/19 23 03/09/2022 LIPID PANEL , STAND DANNI non HDL cholesterol 88 mg/dL _(dylon c) <130 normal For patie nts with diabe chely plus 1 major ASCVD risk facto r, treat ing to a non-H DL-C goal of <100 mg/dL (LDL- C of <70 mg/dL ) is consi lópezd a thera pejocelyn c optio n. Not Available [facility] [address] [place], [address], 03/09/2022 20:22:45 03/08/19 23 03/09/2022 IRON, TIBC AND JENNIFER TIN PANEL ferritin 37 NG/mL 16-232 normal Not Available [address], [address], 03/09/2022 20:22:45 03/08/19 23 03/09/2022 IRON, TIBC AND JENNIFER TIN PANEL iron, total 81 mcg/d L 40-190 normal Not Available [address], [address], 03/09/2022 20:22:45 03/08/19 23 03/09/2022 IRON, TIBC AND JENNIFER TIN PANEL iron binding capacity 334 mcg/d L_(ca lc) 250-45 0 normal Not Available [address], [address], 03/09/2022 20:22:45 03/08/19 23 03/09/2022 IRON, TIBC AND JENNIFER TIN PANEL % saturation 24 %_(ca lc) 16-45 normal Not Available [address], [address], 03/09/2022 20:22:45 03/08/19 23 03/09/2022 CBC (INCL UDES DIFF/ PLT) hemoglobin 16.2 g/dL 11.7-1 5.5 high Not Available [address], [address], 03/09/2022 20:22:46 03/08/19 23 03/09/2022 CBC (INCL UDES DIFF/ PLT) white blood cell count 8.4 thous and/u L 3.8-10 .8 normal Not Available [address], [address], 03/09/2022 20:22:46 03/08/19 23 03/09/2022 CBC (INCL UDES DIFF/ PLT) red blood cell count 5.17 etienne on/uL 3.80-5 .10 high Not Available [address], [address], 03/09/2022 20:22:46 03/08/19 23 03/09/2022 CBC (INCL UDES DIFF/ PLT) hematocrit 47.0 % 35.0-4 5.0 high Not Available [address], [address], 03/09/2022 20:22:46 03/08/19 23 03/09/2022 CBC (INCL UDES DIFF/ PLT) MCV 90.9 fL 80.0-1 00.0 normal Not Available [address], [address], 03/09/2022 20:22:46 03/08/19 23 03/09/2022 CBC (INCL UDES DIFF/ PLT) MCH 31.3 pg 27.0-3 3.0 normal Not Available [address], [address], 03/09/2022 20:22:46 03/08/19 23 03/09/2022 CBC (INCL UDES DIFF/ PLT) MCHC 34.5 g/dL 32.0-3 6.0 normal Not Available [address], [address], 03/09/2022 20:22:46 03/08/19 23 03/09/2022 CBC (INCL UDES DIFF/ PLT) RDW 13.0 % 11.0-1 5.0 normal Not Available [address], [address], 03/09/2022 20:22:46 03/08/19 23 03/09/2022 CBC (INCL UDES DIFF/ PLT) platelet count 221 thous and/u L 140-40 0 normal Not Available [address], [address], 03/09/2022 20:22:46 03/08/19 23 03/09/2022 CBC (INCL UDES DIFF/ PLT) MPV 11.6 fL 7.5-12 .5 normal Not Available [address], [address], 03/09/2022 20:22:46 03/08/19 23 03/09/2022 CBC (INCL UDES DIFF/ PLT) absolute neutrophils 5872 cells /uL 1500-7 800 normal Not Available [address], [address], 03/09/2022 20:22:46 03/08/19 23 03/09/2022 CBC (INCL UDES DIFF/ PLT) absolute lymphocytes 1403 cells /uL 850-39 00 normal Not Available [address], [address], 03/09/2022 20:22:46 03/08/19 23 03/09/2022 CBC (INCL UDES DIFF/ PLT) absolute monocytes 680 cells /uL 200-95 0 normal Not Available [address], [address], 03/09/2022 20:22:46 03/08/19 23 03/09/2022 CBC (INCL UDES DIFF/ PLT) absolute eosinophils 361 cells /uL 15-500 normal Not Available [address], [address], 03/09/2022 20:22:46 03/08/19 23 03/09/2022 CBC (INCL UDES DIFF/ PLT) absolute basophils 84 cells /uL 0-200 normal Not Available [address], [address], 03/09/2022 20:22:46 03/08/19 23 03/09/2022 CBC (INCL UDES DIFF/ PLT) neutrophils 69.9 % normal Not Available [address], [address], 03/09/2022 20:22:46 03/08/19 23 03/09/2022 CBC (INCL UDES DIFF/ PLT) lymphocytes 16.7 % normal Not Available [address], [address], 03/09/2022 20:22:46 03/08/19 23 03/09/2022 CBC (INCL UDES DIFF/ PLT) monocytes 8.1 % normal Not Available [address], [address], 03/09/2022 20:22:46 03/08/19 23 03/09/2022 CBC (INCL UDES DIFF/ PLT) eosinophils 4.3 % normal Not Available [facility] [address], [address], 03/09/2022 20:22:46 03/08/19 23 03/09/2022 CBC (INCL UDES DIFF/ PLT) basophils 1.0 % normal Not Available [address], [address], 03/09/2022 20:22:46 09/29/19 23 09/29/2022 LIPID PANEL WITH REFLE X TO DIREC T LDL cholesterol, total 114 mg/dL <200 normal Not Available [address], [address], 09/29/2022 13:30:35 09/29/19 23 09/29/2022 LIPID PANEL WITH REFLE X TO DIREC T LDL HDL cholesterol 40 mg/dL > or = 50 low Not Available [address], [address], 09/29/2022 13:30:35 09/29/19 23 09/29/2022 LIPID PANEL WITH REFLE X TO DIREC T LDL triglyceride s 109 mg/dL <150 normal Not Available [address], [address], 09/29/2022 13:30:35 09/29/19 23 09/29/2022 LIPID PANEL WITH REFLE X TO DIREC T LDL LDL-choleste rol 55 mg/dL _(dylon c) normal Refer ence range : <100 Nuris able range <100 mg/dL for prima ry preve ntion ; <70 mg/dL for patie nts with CHD or diabe tic patie nts with > or = 2 CHD risk facto rs. LDL-C is now calcu lated using the Tere n-Hop kins calcu latannita n, which is a valid ated novel metho d provi taj christie r accur acy than the Fried jono equat ion in the estim ation of LDL-C . Tere robles SS et al. SAJI. 2013; 310(1 9): 2061- 2068 (http ://ed ucati on.[employer]. com/f aq/FA Q164) Not Available [facility] [address] [address], [place], [address], 09/29/2022 13:30:35 09/29/19 23 09/29/2022 LIPID PANEL WITH REFLE X TO DIREC T LDL chol/HDLC ratio 2.9 (calc ) <5.0 normal Not Available [facility] [address] [address] [address], [place], [address], 09/29/2022 13:30:35 09/29/19 23 09/29/2022 LIPID PANEL WITH REFLE X TO DIREC T LDL non HDL cholesterol 74 mg/dL _(dylon c) <130 normal For patie nts with diabe chely plus 1 major ASCVD risk facto r, treat ing to a non-H DL-C goal of <100 mg/dL (LDL- C of <70 mg/dL ) is dewayne calhouno n. Not Available [facility] [address] [place], [address], 09/29/2022 13:30:35 09/29/19 23 09/29/2022 COMPR EHENS AJAY METAB OLIC PANEL glucose 96 mg/dL 65-99 normal Fasti ng refer ence inter paulina Not Available [address], [address], 09/29/2022 13:30:36 09/29/19 23 09/29/2022 COMPR EHENS AJAY METAB OLIC PANEL urea nitrogen (BUN) 14 mg/dL 7-25 normal Not Available [address], [address], 09/29/2022 13:30:36 09/29/19 23 09/29/2022 COMPR EHENS AJAY METAB OLIC PANEL creatinine 0.82 mg/dL 0.50-1 .03 normal Not Available [address], [address], 09/29/2022 13:30:36 09/29/19 23 09/29/2022 COMPR EHENS AJAY METAB OLIC PANEL eGFR 87 mL/mi n/1.7 3m2 > or = 60 normal Not Available [address], [address], 09/29/2022 13:30:36 09/29/19 23 09/29/2022 COMPR EHENS AJAY METAB OLIC PANEL BUN/creatini ne ratio SEE NOTE: (calc ) 6-22 Not Repor nohemi: BUN and Creat inine are withi n refer ence range . Not Available [address], [address], 09/29/2022 13:30:36 09/29/19 23 09/29/2022 COMPR EHENS AJAY METAB OLIC PANEL sodium 135 mmol/ L 135-14 6 normal Not Available [address], [address], 09/29/2022 13:30:36 09/29/19 23 09/29/2022 COMPR EHENS AJAY METAB OLIC PANEL potassium 4.8 mmol/ L 3.5-5. 3 normal Not Available [address], [address], 09/29/2022 13:30:36 09/29/19 23 09/29/2022 COMPR EHENS AJAY METAB OLIC PANEL chloride 104 mmol/ L 98-110 normal Not Available [address], [address], 09/29/2022 13:30:36 09/29/19 23 09/29/2022 COMPR EHENS AJAY METAB OLIC PANEL carbon dioxide 29 mmol/ L 20-32 normal Not Available [address], [address], 09/29/2022 13:30:36 09/29/19 23 09/29/2022 COMPR EHENS AJAY METAB OLIC PANEL calcium 8.6 mg/dL 8.6-10 .4 normal Not Available [address], [address], 09/29/2022 13:30:36 09/29/19 23 09/29/2022 COMPR EHENS AJAY METAB OLIC PANEL protein, total 6.5 g/dL 6.1-8. 1 normal Not Available [address], [address], 09/29/2022 13:30:36 09/29/19 23 09/29/2022 COMPR EHENS AJAY METAB OLIC PANEL albumin 4.5 g/dL 3.6-5. 1 normal Not Available [address], [address], 09/29/2022 13:30:36 09/29/19 23 09/29/2022 COMPR EHENS AJAY METAB OLIC PANEL globulin 2.0 g/dL_ (calc ) 1.9-3. 7 normal Not Available [address], [address], 09/29/2022 13:30:36 09/29/19 23 09/29/2022 COMPR EHENS AJAY METAB OLIC PANEL albumin/glob ulin ratio 2.3 (calc ) 1.0-2. 5 normal Not Available [address], [address], 09/29/2022 13:30:36 09/29/19 23 09/29/2022 COMPR EHENS AJAY METAB OLIC PANEL bilirubin, total 0.5 mg/dL 0.2-1. 2 normal Not Available [address], [address], 09/29/2022 13:30:36 09/29/19 23 09/29/2022 COMPR EHENS AJAY METAB OLIC PANEL alkaline phosphatase 60 U/L 37-153 normal Not Available [address], [address], 09/29/2022 13:30:36 09/29/19 23 09/29/2022 COMPR EHENS AJAY METAB OLIC PANEL AST 16 U/L 10-35 normal Not Available [address], [address], 09/29/2022 13:30:36 09/29/19 23 09/29/2022 COMPR EHENS AJAY METAB OLIC PANEL ALT 14 U/L 6-29 normal Not Available [address], [address], 09/29/2022 13:30:36 09/29/19 23 09/29/2022 ALBUM IN, RANDO M URINE W/CRE ATINI NE creatinine, random urine 22 mg/dL 20-275 normal Not Available [address], [address], 09/29/2022 13:30:37 09/29/19 23 09/29/2022 ALBUM IN, RANDO M URINE W/CRE ATINI NE albumin, urine <0.2 mg/dL see note: normal Refer ence Range : Refer ence Range Not estab lishe d Not Available [address], [address], 09/29/2022 13:30:37 09/29/19 23 09/29/2022 ALBUM IN, RANDO M URINE W/CRE ATINI NE albumin/crea tinine ratio, random urine NOTE mcg/m g_cre at <30 normal NOTE: The urine album in value is less than 0.2 mg/dL there fore we are unabl e to calcu late excre tion and/o r creat inine ratio . The ADA defin es abnor malit ies in album in excre tion as follo ws: Album inuri a Categ ory Resul t (mcg/ mg creat inine ) Trena l to Mildl y incre ased <30 Moder ately incre ased 30-29 9 Sever speedy incre ased > OR = 300 The ADA recom mends that at least two of three speci mens colle cted withi n a 3-6 month perio d be abnor mal befor e consi dipika g a patie nt to be withi n a diagn ostic categ ory. Not Available [address], [address], 09/29/2022 13:30:37 09/29/1909/29/2022 T4, FREE T4, free 0.9 NG/dL 0.8-1. 8 normal Not Available [facility] [address], [address], 09/29/2022 13:30:37 09/29/1909/29/2022 T3, FREE T3, free 3.0 pg/mL 2.3-4. 2 normal Not Available [address], [address], 09/29/2022 13:30:38 09/29/19 23 09/29/2022 TSH TSH 8.78 mIU/L high Refer ence Range > or = 20 Years 0.40- 4.50 Pregn brenda Range s First trime ster 0.26- 2.66 Secon d trime ster 0.55- 2.73 Third trime ster 0.43- 2.91 Not Available [facility] [address] [place], [address], 09/29/2022 13:30:39 09/29/1909/29/2022 HEMOG LOBIN A1C hemoglobin A1C 5.2 %_of_ total _HGB <5.7 normal For the purpo se of scree luiz for the prese nce of diabe chely: <5.7% Consi stent with the absen ce of diabe chely 5.7-6 .4% Consi stent with incre ased risk for diabe chely (pred iabet es) > or =6.5% Consi stent with diabe chely This assay resul t is consi stent with a decre ased risk of diabe chely. Curre ntly, no conse nsus exist s regar taj use of hemog lobin A1c for diagn osis of diabe chely in child greer. Accor ding to Ameri can Diabe chely Assoc iatio n (ADA) guide lines , hemog lobin A1c <7.0% repre sents optim al contr ol in non-p regna nt diabe tic patie nts. Diffe rent metri cs may apply to speci fic patie nt popul ation s. Stand ards of Medic al Care in Diabe chely(A DA). Not Available [facility] [address] [address] , [place], [address], 09/29/2022 13:30:39 08/26/19 22 08/24/2021 MRI, shoul nilsa, w/o contr ast No observ ation record ed. [id number], [place], [address], 04/26/2022 00:32:39 Result Notes None recorded. Problems Name Problem SNOMED Code Status Onset Date Resolution Date Notes Provider Name and Address Organization Details Recorded Time Pain of right shoulder joint 8834126235673 9100 Active 2021 Not Available [facility] 3 00:29:33 Partial thickness rotator cuff tear 374949140 Active 2021 Not Available [facility] 3 00:29:33 Arthritis of acromiocla vicular joint 771590201 Active 2021 Not Available [facility] 3 00:29:33 Morbid obesity 648028612 Active 2021 Not Available [facility] 3 00:29:33 Pain of right wrist 5201160276792 00 Active 2021 Not Available [facility] 3 00:29:33 Well controlled type 2 diabetes mellitus 555962624 Active 2022 Nanda Martinez MD [address] [facility], [facility] [address], [place], [address] , [employer] 3 16:01:49 Hypothyroi dism 91370478 Active 2022 Nanda Martinez MD [address] [facility], [address], [place], [address] , [employer] 3 16:02:15 Dyslipidem ia 191036585 Active 2022 Nanda Martinez MD [address] [facility], [place] [address], [place], [address] , [employer] 3 16:04:54 Problem Notes None recorded. Procedures Surgical History Date Name Laterality Status Provider Name and Address Organization Details Recorded Time 4 Appendectomy completed Not Available [facility] 023 00:26:55 Imaging Results None recorded. Procedure Notes None recorded. Medical Equipment None Reported. Allergies No known drug allergies Medications Name Sig Start Date Stop Date Status Note LastModified by Organization Details LastModified Time celecoxib 200 mg capsule TAKE 1 CAPSULE BY MOUTH EVERY DAY active Not Available Not Available No t Available cyclobenzap rine 10 mg tablet TAKE 1 TABLET BY MOUTH THREE TIMES DAILY NEEDED FOR MUSCLE SPASMS 05/04 completed Not Available Not Available Not Available metformin 500 mg tablet TAKE 1 TABLET BY MOUTH TWICE DAILY BEFORE MEALS 2022 active Not Available Not Available Not Avai lable prednisone 10 mg tablet FOLLOW PACKAGE DIRECTION S 05/04 completed Not Available Not Available Not Available atorvastati n 20 mg tablet TAKE 1 TABLET BY MOUTH EVERY OTHER DAY AT BEDTIME active Not Available Not Available No t Available alprazolam 1 mg tablet 10/16 completed Not Available Not Available Not Available glipizide ER 10 mg tablet, extended release 24 hr 06/13 completed Not Available Not Available Not Available meloxicam 15 mg tablet 10/16 completed Not Available Not Available Not Available sulfamethox azole 800 mg-trimetho prim 160 mg tablet TAKE 1 TABLET BY MOUTH EVERY 12 HOURS 10/16 completed Not Available Not Available Not Available levothyroxi ne 75 mcg tablet TAKE 1 TABLET BY MOUTH EVERY DAY IN THE MORNING active Not Available Not Available No t Available prednisone 10 mg tablets in a dose pack Take 1 dose pk by oral route. 05/04 completed Not Available Not Available Not Available OneTouch Ultra Test strips Take 1 strip twice a day by [employer] route before meals for 90 days. 2022 active Not Available Not Available Not Avai lable Kenalog 10 mg/mL suspension for injection In office injection administe red by the provider active [facility]: 0003- 0494- 20 Not Available Not Available Not Available baclofen 10 mg tablet 10/16 completed Not Available Not Available Not Available levothyroxi ne 50 mcg tablet TAKE 1 TABLET BY MOUTH EVERY DAY IN THE MORNING active Not Available Not Available No t Available cephalexin 500 mg capsule TAKE 1 CAPSULE BY MOUTH FOUR TIMES DAILY 04/18 completed Not Available Not Available Not Available promethazin e 25 mg tablet TAKE 1/2 TABLET BY MOUTH EVERY 6 HOURS NEEDED FOR NAUSEA 10/16 completed Not Available Not Available Not Available orphenadrin e citrate ER 100 mg tablet,exte nded release 10/16 completed Not Available Not Available Not Available ergocalcife rol (vitamin D2) 1,250 mcg (50,000 unit) capsule TAKE 1 CAPSULE BY MOUTH 1 TIME A WEEK active Not Available Not Available No t Available ibuprofen 600 mg tablet active Not Available Not Available Not Available polyethylen e glycol 3350 17 gram/dose oral powder TAKE DIRECTED BY THE OFFICE 10/16 completed Not Available Not Available Not Available bupropion HCl XL 300 mg 24 hr tablet, extended release 05/04 completed Not Available Not Available Not Available bupropion HCl XL 150 mg 24 hr tablet, extended release 10/16 completed Not Available Not Available Not Available lidocaine (PF) 5 mg/mL (0.5 %) injection solution Take 30 mg by injection route. active Not Available Not Available No t Available Farxiga 10 mg tablet TAKE 1 TABLET BY MOUTH EVERY DAY IN THE MORNING active Not Available Not Available No t Available Trulicity 1.5 mg/0.5 mL subcutaneou s pen injector active Not Available Not Available Not Available OneTouch Ultra2 Meter USE DIRECTED active Not Available Not Available No t Available OneTouch Delica Plus Lancet 33 gauge TEST TWICE DAILY active Not Available Not Available No t Available Vitals Date Recorded Body height Body mass index (BMI) Body weight Body temperature Heart rate Systolic And Diastolic Provider Name and Address Organization Details Last Updated DateTime 3 193.04 cm 29.8 kg/m2 703960. 13 g 97.8 [degF] 73 /min 130/76 mm[Hg] Savannah Pratt CMA [facility] 3 15:53:23 Date Recorded Body mass index (BMI) Body height Body weight Provider Name and Address Organization Details Last Updated DateTime 08/31/2021 31 kg/m2 193.04 cm 294883.05 g Not Available [facility] 04/26/2022 00:28:03 Date Recorded Body height Provider Name an d Address Organization Details Last Updated DateTime 09/19/2021 193.04 cm Not Available [facility] 3 00:28:02 Date Recorded Body mass index (BMI) Body height Pain severity - 0-10 verbal numeric rating [Score] - Reported Body weight Provider Name and Address Organization Details Last Updated DateTime 09/28/2021 29.7 kg/m2 193.04 cm 5 209193.54 g Not Available [facility] 04/26/2022 00:28:03 Date Recorded Body height Body mass index (BMI) Body weight Body temperature Respiratory rate Heart rate Systolic And Diastolic Provider Name and Address Organization Details Last Updated DateTime 3 193.04 cm 31.8 kg/m2 520825. 33 g 98 [degF] 14 /min 71 /min 102/70 mm[Hg] Kim Robertson RN [place] [facility] [email or web address] [facility] 08:53:22 Social History Question Answer Notes LastModified by Organizat ion Details LastModified Time Tobacco Smoking Status Current Every Day Smoker Not Available [facility] 04/26/2022 00:26:23 What Is Your Level Of Caffeine Consumption? None [id number] Information not available 04/26/2022 In The 14 Days Before Symptom Onset, Have You Had Close Contact With A Laboratory-confirm ed COVID-19 While That Case Was Ill? No [id number] Information not available 04/26/2022 In The 14 Days Before Symptom Onset, Have You Had Close Contact With A Person Who Is Under Investigation For COVID-19 While That Person Was Ill? No [id number] Information not available 04/26/2022 Which Illicit Or Recreational Drugs Have You Used? Medical Marajuana [id number] Information not available 04/26/2022 What Is The Highest Grade Or Level Of School You Have Completed Or The Highest Degree You Have Received? [id number] Information not available 04/26/2022 What Is Your Relationship Status? Single [id number] Information not available 04/26/2022 Do You Use Your Seat Belt Or Car Seat Routinely? Yes [id number] Information not available 04/26/2022 At What Age Did You Start Smoking Tobacco? 18 [id number] Information not available 04/26/2022 How Much Tobacco Do You Smoke? 0.5 PPD [id number] Information not available 04/26/2022 Have You Recently Traveled Abroad? No [id number] Information not available 04/26/2022 Sex: Unknown Functional Status Question Answer Note LastModified by Organizat ion Details LastModified Time Do you use any illicit or recreational drugs? Yes [id number] Information not available 04/26/2022 What is your level of alcohol consumption? Occasional [id number] Information not available 04/26/2022 Mental Status Question Answer Note LastModified by Organizat ion Details LastModified Time Do you feel stressed (tense, restless, nervous, or anxious, or unable to sleep at night)? [id number] Information not available 04/26/2022 Family History Relationship Description Onset Age of this Age Resolved Age Notes LastModified by Organization Details LastModified Time Mother Diabetes mellitus [id number] Not available 04/26/2022 00:26:57 Maternal Grandfather Diabetes mellitus [id number] Not available 04/26/2022 00:26:57 Maternal Aunt Diabetes mellitus [id number] Not available 04/26/2022 00:26:57 Maternal Uncle Diabetes mellitus [id number] Not available 04/26/2022 00:26:57 Medical History Condition Response BLINDNESS N KIDNEY STONES N MRSA N CARPAL TUNNEL SYNDROME N LUNG DISEASE/DISORDER N HISTORY OF DRUG ABUSE N COPD N RADIATION / CHEMOTHERAPY N SPORTS INJURY N ANKLE PAIN N BLOOD DISEASES N SCHIZOPHRENIA N SHINGLES N BOWEL PROBLEMS N SHOULDER PAIN N DEPRESSION (INCLUDING POST ) N STROKE/TIA N ULCERS N KNEE PAIN N BENIGN PROSTATIC HYPERPLASIA N OBESITY N GERD/NAUSEA N ANEURYSM N URINARY/BLADDER/KIDNEY PROBLEMS N CORONARY ARTERY DISEASE (CAD) N ADDICTION CONCERNS N USE OF BLOOD THINNERS N SKIN PROBLEMS N EMPHYSEMA N MUSCLE,JOINT OR BONE PROBLEMS N DVT N STOMACH ULCERS N BLOOD CLOTS N USE OF NSAIDS N CONCUSSION OR SPINAL TRAUMA N NEUROPATHY N AIDS/HIV N FRACTURES N ELBOW PAIN N HYPERTENSION N TOURETTE'S N ANXIETY DISORDER N Metal allergy N BLOOD TRANSFUSION N ANEMIA/BLOOD DISORDER N BIPOLAR DISORDER N BRONCHITIS N OSTEOARTHRITIS N TUBERCULOSIS N FOOT PROBLEM N HEART VALVE DISORDERS N ALLERGIES/HAYFEVER N SOFT TISSUE INJURY N INFECTIOUS DISEASE N HEART ARRHYTHMIA N INSOMNIA N RHEUMATOID ARTHRITIS N HIGH CHOLESTEROL / HYPERLIPIDEMIA N EDEMA N CHRONIC PAIN SYNDROME N CAROTID BLOCKAGE N BACK / NECK PROBLEMS N HAVE YOU BEEN HOSPITALIZED OR SEEN IN [facility] IN THE PAST YEAR ? N BURSITIS N HERNIATED DISC N DIALYSIS N FIBROMYALGIA N OSTEOPOROSIS N ARTHRITIS N NO SIGNIFICANT PAST MEDICAL HISTORY N PERIPHERAL NEUROPATHY N DIABETES, TYPE Y HEARTBURN / REFLUX N HEPATITIS / LIVER DISEASE N GOUT N SLEEP DISORDER N ALZHEIMER'S DISEASE N HERPES N SEIZURES/EPILEPSY N HEADACHES/MIGRAINES N VASCULAR DISEASE N HIP PAIN N Blood Disorder N DIZZINESS N HEAD TRAUMA OR INJURY N HEART DISEASE/HEART PROBLEMS N MULTIPLE SCLEROSIS N CARDIAC ARRHYTHMIA N CANCER: SPECIFY N ANESTHESIA COMPLICATIONS N ATRIAL FIBRILLATION N AUTOIMMUNE DISEASE N Gynecological HistoryNo gynecological history recorded. Obstetrics History GPAL:G 0 P 0 0 0 0 Past Encounters Encounter ID Performer Location Encounter Start Date Encounter Closed Date Diagnosis/Indication Diagnosis SNOMED-CT Code Diagnosis ICD10 Code Diagnosis Note [id number] Nanda Martinez MD [facility] [address] [place], [place] [address] 04/18/2021 00:00:00 04/18/2021 12:01:35 [id number] Nanda Martinez MD [facility] [facility] [address] [place] [address] 06/13/2021 00:00:00 06/13/2021 13:33:13 [id number] Scotty Bernardo MD [facility] [address] [place] [address] 06/26/2021 00:00:00 06/26/2021 10:56:17 [id number] Scotty Bernardo MD [facility] [address] [place] [address] 07/27/2021 00:00:00 07/27/2021 10:23:06 [id number] Scotty Bernardo MD [facility] [address] [place] [address] 08/31/2021 00:00:00 08/31/2021 10:27:22 [id number] Nanda Martinez MD [facility] [address] [place], [place] [address] 09/19/2021 00:00:00 09/19/2021 14:52:12 [id number] Scotty Bernardo MD [facility] [address] [place], [place] [address] 09/28/2021 00:00:00 09/28/2021 13:27:09 [id number] Nanda Martinez MD [facility] [address] [place] [address] 05/04/2022 15:45:47 05/04/2022 16:36:00 Well controlled type 2 diabetes mellitus [id number] E11.9 a1c of 5.2% in ideal range- continue metformin, trulicity 1.5 mg SQ weekly and farxiga 10 mg daily. Discussed carb counting and how to read food labels. Recommende d patient to utilize the diabetesfo [place]. com. cn.sones from the ADA website to help with food preparatio n as this presents ideal carb content per meal so this will make carb counting much easier for patient. Recommende d he incorporat e natural insulin teacher education director s such as pears, apples, cinnamon, rick and sweet potatoes to help mobilize his endogenous insulin. Recommende d up to 150 minutes of moderate level activity/e xercise weekly. Hypothyroidism [id number] E03.9 TSH and FT4 in range- will transition of LT4 to unithroid 50 mcg daily. He was reminded to take his unithroid on empty stomach with glass of water and wait one hour to eat or have his coffee in morning and up to 4 hours if ever taking any heartburn or reflux medication s to help optimize absorption . Discussed paleo like diet with restrictio n of GMOs to help with energy and to optimize absorption of vitamins and minerals and reduce inflammati on. Dyslipidemia [id number] E 78.5 Continue on statin therapy as patient tolerating well. Spent up to 28 minutes preparing to see the patient (eg, review of tests), obtaining and/or reviewing separately obtained history, performing a medically appropriat e examinatio n and evaluation , counseling and educating the patient, ordering medication s, tests, along with documentin g clinical informatio n in the electronic health record, independen tly interpreti ng results and communicat ing results to the patient. RTC in 6 months. Patient was provided a handwritte n lab order which contains our fax number. If he chooses to go outside of the [facility] system to obtain labwork he was advised to provide our fax number and my informatio n to the lab he will be obtaining labwork from in order to have his labs properly forwarded over for me to review so there is no loss of follow up due to use of outside network. He was also advised to contact our clinic informing us that he has completed his labwork so we are aware we will need to reach out to the appropriat e laboratory to request his results be forwarded to us so I might have the ability to review and make further medical decision making in his case. He voiced understand ing. [id number] Nanda Martinez MD [facility] [place] [address] [place] [address] 10/16/2022 08:47:14 10/16/2022 09:15:00 Well controlled type 2 diabetes mellitus [id number] E11.9 A1C of 5.2% stable- no evidence of hypoglycem ia- continue on metformin for insulin sensitizat ion. Continue on farxiga and trulicity. Discussed carb counting and how to read food labels. Recommende d patient to utilize the diabetesfo [place]. com. cn.sones from the ADA website to help with food preparatio n as this presents ideal carb content per meal so this will make carb counting much easier for patient. Recommende d she incorporat e natural insulin teacher education director s such as pears, apples, cinnamon, rick and sweet potatoes to help mobilize her endogenous insulin. Recommende d up to 150 minutes of moderate level activity/e xercise weekly. Hypothyroidism [id number] E03.9 TSH and FT4 in low range- will uptitrate LT4 to 75 mcg daily. He was reminded to take his unithroid on empty stomach with glass of water and wait one hour to eat or have his coffee in morning and up to 4 hours if ever taking any heartburn or reflux medication s to help optimize absorption . Discussed paleo like diet with restrictio n of GMOs to help with energy and to optimize absorption of vitamins and minerals and reduce inflammati on. Dyslipidemia [id number] E 78.5 Continue on statin therapy as patient tolerating well. Spent up to 25 minutes preparing to see the patient (eg, review of tests), obtaining and/or reviewing separately obtained history, performing a medically appropriat e examinatio n and evaluation , counseling and educating the patient, ordering medication s, tests, along with documentin g clinical informatio n in the electronic health record, independen tly interpreti ng results and communicat ing results to the patient. Patient can be followed by PCP - she/he is aware of my resignatio n and last day of December 07. If needed his/her PCP can refer patient to another endocrinol ogist in the area. All questions /concerns answered and refills necessary at visit today. Health Concerns Section Related Observation LastModified by Organization Detai ls LastModified Time None Recorded Concern Status LastModified by Organization Details LastModified Time None Recorded Advance Directives Directive None Recorded Payers Insurance Date Sequence Insurance Name Policy Number Policy Jones Covered Member ID Jones Member ID Guarantor Name 10/13/2022 1 [facility] - DOS ON OR AFTER 20 (MEDICAID REPLACEMENT - HMO) Byron Herrera [id number] Byron Herrera Notes Date Note Type Note Provider Name and Address Organization Details Recorded Time 08/31/2021 text/html ShoulderReported bypatient.Hand Dominance:right Location:anterior; lateral Quality:throbbing; frequent Severity:moderate Timing:recurrent; occasional Duration:continuous since onset Aggravating Factors:pushing/pulli ng; throwing; damp weather Alleviating Factors:rest; elevation; stretching; NSAIDs Associated Symptoms:no weakness; no numbness; no tingling; no redness; no ecchymosis; no catching/locking; no popping/clicking; no buckling; no grinding; no instability; no radiation down arm; no drainage; no fever; no chills; no weight loss; no change in bowel/bladder habits;swelling;warmt h Not Available [employer] 08/31/2021 10:27:22 09/28/2021 text/html ShoulderReported bypatient.Hand Dominance:right Location:anterior; lateral Quality:throbbing; frequent Severity:moderate Timing:recurrent; occasional Duration:continuous since onset Aggravating Factors:pushing/pulli ng; throwing; damp weather Alleviating Factors:rest; elevation; stretching; NSAIDs Associated Symptoms:no weakness; no numbness; no tingling; no redness; no ecchymosis; no catching/locking; no popping/clicking; no buckling; no grinding; no instability; no radiation down arm; no drainage; no fever; no chills; no weight loss; no change in bowel/bladder habits;swelling;warmt h Not Available [employer] 09/28/2021 13:27:09 05/04/2022 text/html 51 yo male comes in for follow up in management of well controlled type 2 DM (a1c 5.2%) and hypothyroidism. last seen in at that time we had patient continue metformin, trulicity 1.5 mg SQ weekly and farxiga 10 mg daily. we continued lT4 50 mcg daily. His 90 day average is 106 mg/dL. He has no issues with hypoglycemia and lowest at 79 mg/dL. He has no shakes and sweats and otherwise doing well. He quit smoking since his last visit. labs from 03/19:a1c 5.2%TSH of 3.80 uIU/mlFT4 of 1.1 ng/dLFT3 of 3.4 pg/mLTPO >900 U/mlH/H 16.2/47microalbumin lowglucose 98 mg/dLCr normalLFT [id number]/152/37/65ir on sat 24% Nanda Martinez MD [address], [facility] [address], [place], [address], [employer] [facility] [employer] 05/04/2022 16:52:50 10/16/2022 text/html 52 yo male comes in for follow up in management of well controlled type 2 DM (A1C of 5.2%), hypothyroidism, dyslipidemia. last seen in April at that time we had patient continue metformin, trulicity 1.5 mg SQ weekly and farxiga 10 mg daily. we transitioned to unithroid 50 mcg daily and continued statin therapy. He has no significant lows but running 80 mg/dL up to 120 mg/dL. He doesn't feel sluggish but he has noticed weight gain. He has gained 16 pounds since his last visit. labs from 10/17:A1c 5.2%TSH of 8.78 uIU/mlFT4 of 0.9 ng/dLFT3 of 3.0 pg/mLmicroalbumin lowglucose 96 mg/dLCr normalLFT [id number]/40/55 Nanda Martinez MD [address], [address], [place], [address], [employer] 10/16/2022 09:11:39 OBGyn Episode No OBEpisode recorded.
[2024-09-16 12:25] LABS: Iron 87 ug/dL (49-181)
[2024-09-16 12:28] LABS: Alanine Aminotransferase 26 U/L (6-50); Albumin Level 4.5 g/dL (3.5-5.1); Alkaline Phosphatase 78 U/L (38-126); Anion Gap 10 mmol/L (4-12); Aspartate Amino Transferase 32 U/L (17-59); Bilirubin,Total 0.3 mg/dL (0.2-1.3); Blood Urea Nitrogen 14 mg/dL (9-20); Calcium 9.2 mg/dL (8.4-10.2); Carbon Dioxide 20 mmol/L (22-30); Chloride 104 mmol/L (98-107); Estimated Glomerular Filt Rate > 60; Glucose 125 mg/dL (65-110); Potassium 4.2 mmol/L (3.4-5.0); Sodium 134 mmol/L (137-145); Total Protein 7.4 g/dL (6.3-8.2)
[2024-09-16 12:37] LABS: Percent Iron Saturation 26 % (20-50)
[2024-09-16 13:08] LABS: Ferritin 36.40 ng/mL (11.1-264)
== END 2024-09-16 09:05 | disposition home or self-care (01) ==
LOC: ANHLAB 09:05
PROVIDERS: Visit Provider Internal Medicine Hematology & Oncology
DX: E83.110 Hereditary hemochromatosis (principal)
CPT/HCPCS: 36415; 80053; 82728; 83540; 83550; 85025

== ENCOUNTER 2025-02-10 12:30 | Outpatient (RCR) | payer OTHER, SELFPAY ==
--- NOTE | 2024-12-24 13:25 | OPREHPOC ---
Outpatient Therapy Plan of Care This is a Multidisciplinary Plan of Care that may contain components documented by all disciplines (PT, OT, and ST.) PT Problem 1 PT Problem #1 Knowledge Deficit PT Goal 1 Goal / Goal Update *independent with HEP Target Visit 10 PT Problem 2 PT Problem #2 Pain PT Goal 1 Goal / Goal Update 1* pt report pain at worst of 10 2* pt report sleeping in the bed 3* pt report awakening from sleep 1x/night due to shoulder pain Target Visit 10 PT Problem 3 PT Problem #3 Impaired Flexibility PT Goal 1 Goal / Goal Update increase R shoulder ROM to improve ability to use dominant arm for home and self care activities : active in standin* flexion 140' 2* ER- reach behind head, palm to back of head 3* IR- reaching behind back, palm to waist Target Visit 10 PT Problem 4 PT Problem #4 Impaired Strength PT Goal 1 Goal / Goal Update Increase strength of dominant R shoulder, to improve self care and ability to perform home activities 1* shoulder flexion to 4/5 to reach into cabinet and overhead tasks 2* shoulder abduction and IR 4/5 Target Visit 10
--- NOTE | 2024-12-24 13:25 | PTOPEVAL1 ---
Assessment and note entered by Sierra Reyes, PT Evaluation Information Assessment Status Evaluation ICD-10 Condition Codes (PT) Pain in right shoulder M25.511,Weakness R53.1, Encounter for other orthopedic aftercare Z47.89 Onset 12-21-24 Subjective Information 12-21-24 had R shoulder capsular release and distal clavicle excision; used sling 24 hours post op and have been trying to do some shoulder exercises; per pt- no restrictions from chronic pain in R shoulder; was limited with strength and motion before surgery; R hand dominant; activity: does not work outside the home; Reported Pain Level Pain Score 2: Self Report Additional Pain Score Comments pain range of past few days 2-09/03; anterior shoulder- site of incision increase pain: reaching up decrease pain: rest, ice machine; sleeping in recliner with pillow support to R arm; last night able to sleep through the night Assessment PT Clinical Summary Matthew is 3 days s/p R shoulder capsular release and excision distal clavicle. Per pt, he does not have any restrictions or limitations in activity. Self assessment with Quick DASH rating of 64% limitation. He is R hand dominant and has been doing a few exercises and motions since surgery. He is sleeping in the recliner. With the evaluation: decreased ROM and strength of R shoulder s/p surgery. Skilled PT services are indicated for modalities PRN for pain control, therapeutic exercises to increase R shoulder ROM and strength, with education for posture and home exercises. Plan of Care Interventions Electrical Stimulation,Hot Pack/Cold Pack,Manual Therapy,Neuro Re-education,Patient/Caregiver Education,Therapeutic Activities,Therapeutic Exercise,Ultrasound,Other Other Interventions taping PT Services Indicated Yes Treatment Frequency and 2-3 x/wk for 10 visits Duration These treatments will address the objective and functional deficits as defined above. The patient will be advanced safely and appropriately in order for the patient to progress towards his/her prior level of function. Additional exercises will be introduced and as well as a comprehensive home exercise program upon discharge, if needed, ?to ensure carryover of functional gains achieved in the clinic. This treatment plan has been reviewed and agreement upon by the patient.
--- NOTE | 2025-02-10 12:58 | OPREHPOC ---
Outpatient Therapy Plan of Care This is a Multidisciplinary Plan of Care that may contain components documented by all disciplines (PT, OT, and ST.) PT Problem 1 PT Problem #1 Knowledge Deficit PT Goal 1 Goal / Goal Update *independent with HEP 02-10-25 d/c goal met Target Visit 10 Progress Met PT Problem 2 PT Problem #2 Pain PT Goal 1 Goal / Goal Update 1* pt report pain at worst of 10 2* pt report sleeping in the bed 3* pt report awakening from sleep 1x/night due to shoulder pain 02-10-25 d/c goals met Target Visit 10 Progress Met PT Problem 3 PT Problem #3 Impaired Flexibility PT Goal 1 Goal / Goal Update increase R shoulder ROM to improve ability to use dominant arm for home and self care activities : active in standin* flexion 140' 2* ER- reach behind head, palm to back of head 3* IR- reaching behind back, palm to waist 02-10-25 d/c goals met Target Visit 10 Progress Met PT Problem 4 PT Problem #4 Impaired Strength PT Goal 1 Goal / Goal Update Increase strength of dominant R shoulder, to improve self care and ability to perform home activities 1* shoulder flexion to 4/5 to reach into cabinet and overhead tasks 2* shoulder abduction and IR 4/5 02-10-25 d/c goals met Target Visit 10 Progress Met
--- NOTE | 2025-02-10 12:58 | PTOPDC ---
Assessment and note entered by Sierra Reyes, PT Assessment Status Discharge ICD-10 Condition Codes (PT) Pain in right shoulder M25.511,Weakness R53.1, Encounter for other orthopedic aftercare Z47.89 Onset 12-21-24 Subjective Information Shoulder is much better; played the drums and did OK; was able to chop for over an hour and did ok ; back to doing everything again Reported Pain Level Pain Score 0: Self Report Additional Pain Score Comments no pain in the past week in his shoulder; no issues with sleeping; Assessment PT Clinical Summary Matthew has received a total of 10 PT sessions. With today's assessment: he has improved in all areas and all the goals were achieved: pain in the past week 0/10; self assessment with Quick DASH 0%; R shoulder active ROM is WNL and no pain reported; use of 8# hand weight for shoulder strengthening to 90'; education completed for HEP and posture. Discharge PT. He is to continue with his HEP. Plan of Care PT Services Indicated No
== END 2025-02-10 16:36 | disposition home or self-care (01) ==
LOC: ANHPT 12:30
DX: M25.511 Pain in right shoulder (principal); R53.1 Weakness; Z47.89 Encounter for other orthopedic aftercare
CPT/HCPCS: 97110; 97112; 97140; 97161; 97530